=== PATIENT | female | born 1995 | race Caucasian/White ===

== ENCOUNTER → 2018-10-28 | Outpatient (CLI) | payer BC, SELFPAY ==
[2018-10-28 09:58] VITALS: BMI 34.4
[2018-10-28 11:39] LABS: Absolute Lymphocyte Count 1.76 X10^3/ul (0.83-4.51); Absolute Neutrophil Count 7.6 X10^3/uL (2.0-7.7); Basophil# 0.02 X10^3/uL; Basophil% 0.2 % (0-1); Eosinophil# 0.05 X10^3/uL; Eosinophils% 0.5 % (0-5); Hematocrit 29.5 % (37-47); Hemoglobin 9.2 g/dl (12.0-15.0); Lymphocyte # 1.76 X10^3/ul (4.0); Lymphocyte % 16.8 % (19-41); Mean Corp Hgb Conc 31.2 g/gl (32-36); Mean Corpuscular Hgb 22.4 pg (27.0-32.0); Mean Platelet Vol. 8.8 fl (6.2-12.0); Monocyte% 9.5 % (0-10); Neutrophil # 7.61 X10^3/uL (2.7-7.7); Neutrophil % 72.5 % (47-70); Platelet Count 323 K/mm3 (150-450); RBC Distribution Width CV 16.1 % (11.6-14.6); RBC Distribution Width SD 42.9 fl (35.1-43.9); White Blood Count 10.5 K/mm3 (4.4-11.0)
[2018-10-28 11:43] LABS: POSITIVE COUNT NO; POSITIVE DIFFERENTIAL NO; POSITIVE MORPHOLOGY NO
[2018-10-28 11:53] LABS: Glucose Challenge Gest 1H 50g 106 mg/dL (70-140)
== END | disposition home or self-care (01) ==
LOC: LAB 10:20
PROVIDERS: Family Provider Family Medicine; PCP Family Medicine; Referring Provider Nurse Practitioner Women's Health; Visit Provider Nurse Practitioner Women's Health
DX: Z34.90 Encounter for supervision of normal pregnancy, unspecified, unspecified trimester (principal)
CPT/HCPCS: 36415; 82950; 85025; 86850; 86900

== ENCOUNTER → 2018-11-13 | Outpatient (CLI) | payer BC, SELFPAY ==
[2018-11-13 11:42] VITALS: BMI 34.4
[2018-11-13 12:36] LABS: Absolute Neutrophil Count 7.2 X10^3/uL (2.0-7.7); Basophil# 0.02 X10^3/uL; Basophil% 0.2 % (0-1); Eosinophil# 0.04 X10^3/uL; Eosinophils% 0.4 % (0-5); Hematocrit 30.7 % (37-47); Hemoglobin 9.4 g/dl (12.0-15.0); Lymphocyte % 18.6 % (19-41); Mean Corp Hgb Conc 30.6 g/gl (32-36); Mean Corpuscular Hgb 22.1 pg (27.0-32.0); Mean Corpuscular Volume 72.2 fL (81-99); Mean Platelet Vol. 8.7 fl (6.2-12.0); Monocyte# 1.09 X10^3/uL; Monocyte% 10.7 % (0-10); Neutrophil # 7.15 X10^3/uL (2.7-7.7); Neutrophil % 69.8 % (47-70); Platelet Count 350 K/mm3 (150-450); RBC Distribution Width CV 17.2 % (11.6-14.6); RBC Distribution Width SD 44.4 fl (35.1-43.9); Red Blood Count 4.25 M/mm3 (4.2-5.4); White Blood Count 10.2 K/mm3 (4.4-11.0)
[2018-11-13 12:37] LABS: Differential Indicated SCAN CRITERIA MET; POSITIVE COUNT NO; POSITIVE DIFFERENTIAL NO; POSITIVE MORPHOLOGY YES
[2018-11-13 13:34] LABS: HIV - WCH Non-Reactive (Nonreactive); Rubella IgG 136.2 IU/mL
[2018-11-14 15:02] LABS: HEPATITIS B SURFACE AG Negative (Negative)
[2018-11-20 02:05] LABS: Rapid Plasmin Reagin (RPR) NONREACTIVE (NONREACTIVE)
== END | disposition home or self-care (01) ==
LOC: PAVLAB 11:55
PROVIDERS: Family Provider Family Medicine; PCP Family Medicine; Visit Provider Obstetrics & Gynecology
DX: Z34.92 Encounter for supervision of normal pregnancy, unspecified, second trimester (principal)
CPT/HCPCS: 36415; 85025; 86592; 86703; 86762; 86850; 86900; 87340

== ENCOUNTER → 2018-11-27 | Outpatient (CLI) | payer BC, SELFPAY ==
[2018-11-27 11:13] VITALS: BMI 34.4
== END | disposition home or self-care (01) ==
LOC: LABSPEC 13:33
PROVIDERS: Family Provider Family Medicine; PCP Family Medicine; Referring Provider Obstetrics & Gynecology; Visit Provider Obstetrics & Gynecology
DX: Z34.90 Encounter for supervision of normal pregnancy, unspecified, unspecified trimester (principal)

== ENCOUNTER 2018-12-25 14:40 | Outpatient (CLI) | payer BC, SELFPAY ==
[2018-12-25 11:32] VITALS: BMI 34.4
--- NOTE | 2018-12-25 15:24 | US_ITS ---
STUDY: SECOND AND THIRD TRIMESTER OBSTETRICAL ULTRASOUND - LIMITED REASON FOR EXAM: Female, 23 years old. Growth LMP: 04/18/2018 PRIOR ULTRASOUND: None. TECHNIQUE: Transabdominal TECHNICAL QUALITY: Adequate. FINDINGS: There is a single intrauterine fetus. The fetus is in a cephalic presentation. There is demonstrated cardiac activity with a heart rate of 138 bpm. There is a normal amniotic fluid volume. The largest amniotic fluid pocket measures 5.64 cm. The amniotic fluid index (EDSON) is 15.18 cm. The placenta is anterior in location and is not low lying. There are Grade 1 placental changes. The cervix measures 3.7 cm in length. BIOMETRY: BPD: 8.48 cm: 34 weeks, 2 days HC: 32.02: 36 weeks, 1 days AC: 30.62: 34 weeks, 5 days FL: 6.77: 34 weeks, 6 days Age by LMP: 35 weeks, 6 days. BRITTNEY by LMP: 01/23/2019 age by current US: 35 weeks, 0 days. BRITTNEY by current US: 01/29/2019. Estimated weight: 2506 grams, +/- 366 grams, 22 percentile. US/OB Limited With Biometrics IMPRESSION: Intrauterine gestation with sonographic age of 35 weeks 0 days. Cervix is closed. Positive cardiac activity. Normal amniotic fluid volume. Normal placenta. Electronically Signed: Petros Moseley MD at 17:08 EDT Tel , Service support ,
[2018-12-25 16:16] VITALS: BMI 34.1
[2018-12-25] MEDS: Betamethasone/Betamethasone 30 MG/5 ML Vial 12 MG IM (16:45)
--- NOTE | 2018-12-28 02:56 | HP.PCM_ITS ---
- Problem List (1) Severe preeclampsia Status: Acute (2) heart deceleration Status: Acute (3) Anemia affecting , antepartum Status: Acute Comment: iron and PNV, check at 35 weeks (4) Supervision of normal Status: Acute Qualifiers: Comment: BRITTNEY 01/23/19 boy Donald rogerio (5) Status: Acute Qualifiers: History Date of Admission: 12/28/18 Final BRITTNEY: 01/23/19 Gestational age: 36 Weeks and 2 Days History of this : This is a 23 year-old, , at 36w2d weeks gestational age presents for borderline elevated blood pressures headache and blurry vision and decreased movement. Patient was evaluated 3 days ago and diagnosed with mild preeclampsia, had normal labs except for an elevated protein in the urine and had a normal growth ultrasound. Tonight patient's CBC was within normal limits but liver enzymes are no elevated and blood pressures are normal to borderline elevated patient has headache, blurry vision, and there is a category 2 heart rate tracing with moderate variability but intermittent recurrent late decelerations. Medical History: Medical History (Last Reviewed 12/25/18 @ 11:09 by Faviola Diana) Anemia D64.9 Depression with anxiety F41.8 Surgical History: Surgical History (Last Reviewed 12/25/18 @ 11:09 by Faviola Diana) H/O knee surgery Z98.890 2007 H/O removal of cyst Z98.890 right leg- 2014 Allergies No Known Allergies Allergy (Verified 12/28/18 00:36) Home Medications: Home Medications nystatin 100,000 unit/gram topical cream 1 applic TOPICAL BID 10/02/18 vitamin,calcium,dxtoiglf-cemp-fruhz acid tablet 1 tab PO DAILY 10/02/18 triamcinolone acetonide 0.1 % topical cream 1 applic TOPICAL DAILY 10/02/18 Ferrous Sulfate [Iron] 325 mg PO DAILY 12/25/18 miscellaneous medical supply misc See Rx Instructions .ROUTE .MEDSUPPLY #1 ea 12/25/18 Smoking Status: Never smoker Number of Fetus(es): 1 Heart Tracin moderate variability positive accelerations intermittent late decelerations, category II tracing [place]: regular History Past Pregnancies: Past Pregnancies Delivery Date Name GA/Weeks Outcome Route Weight Infant Gender Labor Length Anesthesia Delivery Location Provider FOB Labs: Social History Smoking Status Never smoker Expected Infant Delivery Method: Primary Section, LEVI Section Review of Systems Constitutional: Denies: Fever, Malaise Eyes: Reports: Blurred vision, Vision Change HEENT: Reports: Head Aches, Visual Changes Cardiovascular: Denies: Chest Pain, Palpitations Respiratory: Denies: Cough, Shortness of Breath, Wheezing Gastrointestinal: Denies: Abdominal Pain, Diarrhea, Nausea, Vomiting Genitourinary: Denies: Dysuria, Hematuria Musculoskeletal: Denies: Joint Pain, Muscle pain Skin: Denies: Lesions, Rash Neurological: Reports: Headaches. Denies: Blurred vision, Focal weakness Psychiatric: Denies: Anxiety, Depression Endocrine: Denies: Heat/ Cold Intolerance Hematologic/ Lymphatic: Denies: Easy Bruising, Easy Bleeding Physical Exam General: Alert, Cooperative, No apparent distress HEENT: Atraumatic, Normocephalic. Negative for: Thyromegaly, Lymphadenopathy Cardiovascular: Regular rate Lungs: Normal air movement Abdomen: Soft, Non Tender, Gravid Neurological: Deep Tendon Reflexes 2+/4 and Symmetrical, Neuro grossly intact. Negative for: Clonus [employer] CONSULTANT: Normal external genitalia. Negative for: Vulvar lesions Estimated gestational size: Appropriate for gestational size Presentation: Cephalic Cervix Dilation (cm): 0 Assessment/Plan All Active Problems (Last Reviewed 12/25/18 @ 11:09 by Faviola Diana) Severe preeclampsia (Acute) heart deceleration (Acute) Mild pre-eclampsia (Acute) Anemia affecting , antepartum (Acute) Supervision of normal (Acute) (Acute) This is a 23 year-old, , at 36w2d weeks gestational age presents with preeclampsia with severe symptoms and category II tracing 1. severe preeclampsia- will start magnesium sulfate, maintain bps under 160/110. recommend immediate delivery 2. prematurity- s/p celestone 3 days ago 3. category II tracing- remote from delivery, recommend proceed with
--- NOTE | 2018-12-28 03:13 | PCM.OPRPT ---
Problem List (1) Severe preeclampsia Status: Acute (2) heart deceleration Status: Acute (3) Anemia affecting , antepartum Status: Acute Comment: iron and PNV, check at 35 weeks (4) Supervision of normal Status: Acute Qualifiers: Comment: BRITTNEY 01/23/19 boy Donald rogerio (5) Status: Acute Qualifiers:
--- NOTE | 2018-12-28 04:16 | OB.TRI.PN ---
Progress Notes Date of Service: 12/25/18 Progress Note: Elevated protein in the office. Labs done and within normal limits. Celestone given. heart tones 120 moderate variability reactive no decelerations category 1 tracing [place]: No regular contractions Assessment and plan 23-year-old G2, P0 at 35 weeks 6 days with mild preeclampsia. First dose of Celestone given labs within normal limits growth ultrasound reassuring will DC home to manage as outpatient for preeclampsia. Plan home blood pressure monitoring and symptoms reviewed.
[2018-12-28 07:05] LABS: ALB/GLOB Ratio 0.7 RATIO (0.9-2.4); AST(SGOT) 65 U/L (15-37); Alanine Aminotransfer ALT/SGPT 57 U/L (13-56); Albumin, Serum 2.5 g/dL (3.2-5.0); Alkaline Phosphatase 109 U/L (45-117); Anion Gap 10 (5-15); BUN 15 mg/dL (7-18); BUN/Creat Ratio 17.7 RATIO (10-20); Chloride 108 mmol/L (98-107); Creatinine, Serum 0.85 mg/dL (0.55-1.02); EST Glomerular Filtration Rate 87 mL/min (>60); Est Glom Filt Rate - Afr Amer 106 mL/min (>60); Estimated Creatinine Clearance 110.36 ml/min; Globulin 3.6 g/dL (2.2-4.2); Glucose 101 mg/dL (74-106); Potassium 3.3 mmol/L (3.5-5.1); Protein, Total 6.1 g/dL (6.4-8.2); Sodium Level 137 mmol/L (136-145)
[2018-12-28 07:06] LABS: Hematocrit 32.2 % (37-47); Hemoglobin 9.7 g/dl (12.0-15.0); Mean Corp Hgb Conc 30.1 g/gl (32-36); Mean Corpuscular Hgb 21.6 pg (27.0-32.0); Mean Corpuscular Volume 71.6 fL (81-99); Mean Platelet Vol. 9.4 fl (6.2-12.0); Platelet Count 377 K/mm3 (150-450); RBC Distribution Width SD 46.9 fl (35.1-43.9); White Blood Count 14.2 K/mm3 (4.4-11.0)
[2018-12-28 07:20] LABS: Scan Indicated on CBC? Y/N YES- FLAGS NOTED
[2018-12-28 07:30] LABS: Differential Comment SCANNED
== END 2018-12-25 17:00 | disposition home or self-care (01) ==
LOC: WPOUT 14:46 → OBT 14:47
PROVIDERS: Family Provider Family Medicine; PCP Family Medicine; Referring Provider Obstetrics & Gynecology; Visit Provider Obstetrics & Gynecology
DX: O14.03 Mild to moderate pre-eclampsia, third trimester (principal); Z3A.35 35 weeks gestation of pregnancy
CPT/HCPCS: 59025; 59050; 76816; 80053; 85027; 96372; 99218; G0378; J0702

== ENCOUNTER → 2018-12-25 | Outpatient (CLI) | payer BC, SELFPAY ==
[2018-12-25 11:32] VITALS: BMI 34.4
[2018-12-25 11:53] LABS: Absolute Lymphocyte Count 2.19 X10^3/ul (0.83-4.51); Absolute Neutrophil Count 6.2 X10^3/uL (2.0-7.7); Basophil# 0.04 X10^3/uL; Basophil% 0.4 % (0-1); Eosinophil# 0.04 X10^3/uL; Eosinophils% 0.4 % (0-5); Hematocrit 34.2 % (37-47); Hemoglobin 10.6 g/dl (12.0-15.0); Lymphocyte # 2.19 X10^3/ul (4.0); Lymphocyte % 22.6 % (19-41); Mean Corpuscular Hgb 21.6 pg (27.0-32.0); Mean Corpuscular Volume 69.7 fL (81-99); Mean Platelet Vol. 9.7 fl (6.2-12.0); Monocyte# 1.14 X10^3/uL; Monocyte% 11.8 % (0-10); Neutrophil # 6.24 X10^3/uL (2.7-7.7); Neutrophil % 64.5 % (47-70); Platelet Count 389 K/mm3 (150-450); RBC Distribution Width CV 18.5 % (11.6-14.6); RBC Distribution Width SD 46.1 fl (35.1-43.9); Red Blood Count 4.91 M/mm3 (4.2-5.4); White Blood Count 9.7 K/mm3 (4.4-11.0)
[2018-12-25 11:54] LABS: POSITIVE COUNT NO; POSITIVE DIFFERENTIAL NO; POSITIVE MORPHOLOGY NO
[2018-12-25 12:12] LABS: ALB/GLOB Ratio 0.6 RATIO (0.9-2.4); AST(SGOT) 18 U/L (15-37); Alanine Aminotransfer ALT/SGPT 22 U/L (13-56); Albumin, Serum 2.5 g/dL (3.2-5.0); Alkaline Phosphatase 125 U/L (45-117); Anion Gap 5 (5-15); BUN 8 mg/dL (7-18); BUN/Creat Ratio 9.5 RATIO (10-20); Calcium,Total 8.5 mg/dL (8.5-10.1); Chloride 109 mmol/L (98-107); Creatinine, Serum 0.84 mg/dL (0.55-1.02); EST Glomerular Filtration Rate 88 mL/min (>60); Est Glom Filt Rate - Afr Amer 107 mL/min (>60); Globulin 3.9 g/dL (2.2-4.2); Glucose 77 mg/dL (74-106); Potassium 4.2 mmol/L (3.5-5.1); Protein, Total 6.4 g/dL (6.4-8.2); Sodium Level 136 mmol/L (136-145)
[2018-12-25 13:53] LABS: Protein, Urine (Random) 106.6 mg/dL (<11.9); Protein:Creat Ratio 404 mg/g CRE (0-200)
== END | disposition home or self-care (01) ==
PROVIDERS: Family Provider Family Medicine; PCP Family Medicine; Referring Provider Nurse Practitioner Women's Health; Visit Provider Nurse Practitioner Women's Health
DX: O99.019 Anemia complicating pregnancy, unspecified trimester (principal); D64.9 Anemia, unspecified; O12.10 Gestational proteinuria, unspecified trimester; Z3A.00 Weeks of gestation of pregnancy not specified
CPT/HCPCS: 36415; 80053; 82570; 84156; 85025

== ENCOUNTER 2018-12-26 15:30 | Outpatient (CLI) | payer BC, SELFPAY ==
[2018-12-25 16:16] VITALS: BMI 34.1
[2018-12-26 15:48] VITALS: BMI 33.5
[2018-12-26] MEDS: Betamethasone/Betamethasone 30 MG/5 ML Vial 12 MG IM (16:42)
--- NOTE | 2018-12-28 04:18 | OB.TRI.PN ---
Progress Notes Date of Service: 12/26/18 Progress Note: Celestone dose #2 given
== END 2018-12-26 16:47 | disposition home or self-care (01) ==
LOC: WPOUT 15:35 → WP 15:36
PROVIDERS: Family Provider Family Medicine; PCP Family Medicine; Visit Provider Obstetrics & Gynecology
DX: Z34.90 Encounter for supervision of normal pregnancy, unspecified, unspecified trimester (principal)
CPT/HCPCS: 96372; 99218; G0378; J0702

== ENCOUNTER 2018-12-28 02:53 | Inpatient (IN) | payer BC, SELFPAY ==
[2018-12-28] VITALS (28 sets, daily range): BP systolic 127–157; BP diastolic 55–91; PULSE 58–82; RESP 16–18; TEMP 35.8–36.9; O2SAT 98–100; BMI 34.1
--- NOTE | 2018-12-28 | PLAC_PTH ---
PATIENT: BERNARDO BONILLA LOC: [facility] U#:[id number] AGE/SX: 23 ROOM: WP012 RE12/28/[address]: Dr. Patricia Rooney MD : 1995 BED: 1 DIS: 12/31/2018 SPEC #: [id number] RECD: 12/28/18 10:48 STATUS: MEGAN REChrissy #: [id number] ANDRES: 12/28/18 00:[address]: Patricia Rooney DEPT: SURGICAL PATHOLOGY RECD BY: Juluis Chin ENTERED: 12/28/18 10:49 SP TYPE: PLACENTA OTHR DR: Dr. Marino Hernandez, Tissues: Placenta, NOS Procedures: Surgery Specimen Level V HEADER OPERATION: Primary section PRE-OP DIAGNOSIS: Pre-eclampsia TISSUE SUBMITTED: Placenta MICROSCOPIC DIAGNOSIS Placenta: Placental disc - third trimester placenta (427 gm). - Multiple areas of infarction (largest measuring 3.5 cm in greatest dimension). - Focal areas of intraparenchymal hemorrhage. - Focal area of fibrinous deposition, maternal surface (grossly plaque-like lesion). - Increased syncytial knots. Membranes - focal circummarginate insertion. Umbilical cord - three blood vessels and no pathologic diagnosis. SJ:bhavna 12/30/18 MICROSCOPIC DESCRIPTION Slides are reviewed. GROSS DESCRIPTION SPECIMEN: PLACENTA / CLINICAL INFORMATION: A. Weight: 2.14 kg B. Gestational Age: 36 weeks C. Sex: Male PLACENTAL WEIGHT (POST FIXATION): 427 gm PLACENTAL DIMENSIONS: 15 x 14 x 3.5 cm PLACENTAL SHAPE: Usual ovoid PLACENTAL WEIGHT FOR GESTATIONAL AGE: Within 10-99th percentile MEMBRANES - Present A. Insertion: The membranes are inserted in one-fourth of the placenta 1.5 cm away from the margin. B. Site of rupture from edge: At edge of placental disc C. Color of membrane: Pino-orlando D. Abnormalities: None UMBILICAL CORD - Present A. Color: Pino-orlando B. Insertion: Paracentral C. Length: 28 cm D. Diameter: 1.2 cm E. Number of vessels: Three F. Abnormalities: None PLACENTAL DISC - Present A. Color of surface: Pino[place]or[place] B. surface abnormalities: None C. Maternal cotyledons: Intact with minimal tears D. Attached retro placental clot: No clot E. Cut surface: Dark red and spongy F. Lesions: Sections reveal nine pino, indurated areas measuring 1 to 3.5 cm in greatest dimension. The largest lesion measures 3.5 x 3.5 x 1 cm. A plaque-like lesion is also noted on the maternal surface measuring 4 cm in greatest dimension. G. Separate clot: Also present in the container are multiple blood clots measuring in aggregate 6 x 5 x 2 cm weighing 10 gm. SECTIONS SUBMITTED: 1. Membrane roll 2. Cord, maternal end, insertion of membrane away from the placenta 3. Cord, end, insertion of membrane away from the placenta 4. Placental disc, maternal and surfaces, largest lesion, 5. Placental disc maternal and surfaces, one lesion, 6. Placental disc maternal and surfaces, one lesion. 7. Placental disc, Two lesions. 8. Placental disc, Two lesions. 9. Placental disc, Two lesions. 10. Placental disc, plaque-like area on the maternal surface, SJ:rg 12/29/18 TC:5 CPT: 83303
[2018-12-28 01:28] LABS: Absolute Neutrophil Count 11.2 X10^3/uL (2.0-7.7); Basophil# 0.01 X10^3/uL; Basophil% 0.1 % (0-1); Hemoglobin 9.9 g/dl (12.0-15.0); Lymphocyte % 17.7 % (19-41); Mean Corp Hgb Conc 30.9 g/gl (32-36); Mean Corpuscular Hgb 22.1 pg (27.0-32.0); Mean Corpuscular Volume 71.6 fL (81-99); Mean Platelet Vol. 9.3 fl (6.2-12.0); Monocyte# 1.77 X10^3/uL; Monocyte% 11.2 % (0-10); Neutrophil # 11.18 X10^3/uL (2.7-7.7); Neutrophil % 70.6 % (47-70); Platelet Count 375 K/mm3 (150-450); RBC Distribution Width SD 46.5 fl (35.1-43.9); Red Blood Count 4.47 M/mm3 (4.2-5.4); White Blood Count 15.8 K/mm3 (4.4-11.0)
[2018-12-28 01:30] LABS: Differential Indicated SCAN CRITERIA MET; POSITIVE COUNT NO; POSITIVE DIFFERENTIAL YES; POSITIVE MORPHOLOGY YES
[2018-12-28 01:33] LABS: ALB/GLOB Ratio 0.7 RATIO (0.9-2.4); AST(SGOT) 72 U/L (15-37); Alanine Aminotransfer ALT/SGPT 64 U/L (13-56); Albumin, Serum 2.7 g/dL (3.2-5.0); Alkaline Phosphatase 117 U/L (45-117); Anion Gap 7 (5-15); BUN 17 mg/dL (7-18); BUN/Creat Ratio 18.6 RATIO (10-20); Calcium,Total 8.3 mg/dL (8.5-10.1); Chloride 108 mmol/L (98-107); Creatinine, Serum 0.92 mg/dL (0.55-1.02); EST Glomerular Filtration Rate 80 mL/min (>60); Est Glom Filt Rate - Afr Amer 97 mL/min (>60); Estimated Creatinine Clearance 101.96 ml/min; Globulin 3.8 g/dL (2.2-4.2); Glucose 90 mg/dL (74-106); Potassium 3.7 mmol/L (3.5-5.1); Protein, Total 6.5 g/dL (6.4-8.2); Sodium Level 137 mmol/L (136-145)
[2018-12-28 02:03] LABS: Differential Comment SCANNED; Hypochromasia 3+; Macrocytosis RARE; Microcytosis 3+; Ovalocyte RARE; Platelet Estimate ADEQUATE (ADEQ); Target Cells RARE
[2018-12-28] MEDS: Lactated Ringers 1,000 ML 999 ML IV (02:58)
[2018-12-28] MEDS: Sodium Citrate/Citric Acid 30 ML UDC PO (03:05)
[2018-12-28] MEDS: Cefazolin 2 GM in 0.9% Normal Saline 100 ML IV (03:40)
[2018-12-28] MEDS: Oxytocin 30 units/NS 500 ml 30 UNITS/500 ML IV.SOLN 167 UNITS IV (03:45)
[2018-12-28] MEDS: Lactated Ringers 1,000 ML 150 ML IV (04:00)
--- NOTE | 2018-12-28 04:14 | HP.PCM_ITS ---
- Problem List (1) Anemia affecting , antepartum Status: Acute Comment: iron and PNV, check at 35 weeks (2) heart deceleration Status: Acute (3) Status: Acute Qualifiers: (4) Severe preeclampsia Status: Acute (5) Supervision of normal Status: Acute Qualifiers: Comment: BRITTNEY 01/23/19 silvestre beatty History and Physical Date of Admission: 12/28/[address] [facility] History and Physical - OBGYN Patient Name: BERNARDO BONILLA Date of : [birth year] Patient Status: Clinical Attending Provider: Patricia Rooney Date: 12/28/18 02:56 Initialization Date: 12/28/18 02:56 - Problem List (1) Severe preeclampsia Status: Acute (2) heart deceleration Status: Acute (3) Anemia affecting , antepartum Status: Acute Comment: iron and PNV, check at 35 weeks (4) Supervision of normal Status: Acute Qualifiers: Comment: BRITTNEY 01/23/19 silvestre beatty (5) Status: Acute Qualifiers: History Date of Admission: 12/28/18 Final BRITTNEY: 01/23/19 Gestational age: 36 Weeks and 2 Days History of this : This is a 23 year-old, , at 36w2d weeks gestational age presents for borderline elevated blood pressures headache and blurry vision and decreased movement. Patient was evaluated 3 days ago and diagnosed with mild preeclampsia, had normal labs except for an elevated protein in the urine and had a normal growth ultrasound. Tonight patient's CBC was within normal limits but liver enzymes are no elevated and blood pressures are normal to borderline elevated patient has headache, blurry vision, and there is a category 2 heart rate tracing with moderate variability but intermittent recurrent late decelerations. Medical History: Medical History (Last Reviewed 12/25/18 @ 11:09 by Faviola Diana) Anemia D64.9 Depression with anxiety F41.8 Surgical History: Surgical History (Last Reviewed 12/25/18 @ 11:09 by Faviola Diana) H/O knee surgery Z98.890 2007 H/O removal of cyst Z98.890 right leg- 2015 Allergies No Known Allergies Allergy (Verified 12/28/18 00:36) Home Medications: Home Medications nystatin 100,000 unit/gram topical cream 1 applic TOPICAL BID 10/02/18 vitamin,calcium,xsaaydvj-ceta-jlfqp acid tablet 1 tab PO DAILY 10/02/18 triamcinolone acetonide 0.1 % topical cream 1 applic TOPICAL DAILY 10/02/18 Ferrous Sulfate [Iron] 325 mg PO DAILY 12/25/18 miscellaneous medical supply misc See Rx Instructions .ROUTE .MEDSUPPLY #1 ea 12/25/18 Smoking Status: Never smoker Number of Fetus(es): 1 Heart Tracin moderate variability positive accelerations intermittent late decelerations, category II tracing [place]: regular History Past Pregnancies: Past Pregnancies Delivery Date Name GA/Weeks Outcome Route Weight Infant Gender Labor Length Anesthesia Delivery Location Provider FOB Labs: Social History Smoking Status Never smoker Expected Infant Delivery Method: Primary Section, LEVI Section Review of Systems Constitutional: Denies: Fever, Malaise Eyes: Reports: Blurred vision, Vision Change HEENT: Reports: Head Aches, Visual Changes Cardiovascular: Denies: Chest Pain, Palpitations Respiratory: Denies: Cough, Shortness of Breath, Wheezing Gastrointestinal: Denies: Abdominal Pain, Diarrhea, Nausea, Vomiting Genitourinary: Denies: Dysuria, Hematuria Musculoskeletal: Denies: Joint Pain, Muscle pain Skin: Denies: Lesions, Rash Neurological: Reports: Headaches. Denies: Blurred vision, Focal weakness Psychiatric: Denies: Anxiety, Depression Endocrine: Denies: Heat/ Cold Intolerance Hematologic/ Lymphatic: Denies: Easy Bruising, Easy Bleeding Physical Exam General: Alert, Cooperative, No apparent distress HEENT: Atraumatic, Normocephalic. Negative for: Thyromegaly, Lymphadenopathy Cardiovascular: Regular rate Lungs: Normal air movement Abdomen: Soft, Non Tender, Gravid Neurological: Deep Tendon Reflexes 2+/4 and Symmetrical, Neuro grossly intact. 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 Negative for: Vulvar lesions Estimated gestational size: Appropriate for gestational size Presentation: Cephalic Cervix Dilation (cm): 0 Assessment/Plan All Active Problems (Last Reviewed 12/25/18 @ 11:09 by Faviola Diana) Severe preeclampsia (Acute) heart deceleration (Acute) Mild pre-eclampsia (Acute) Anemia affecting , antepartum (Acute) Supervision of normal (Acute) (Acute) This is a 23 year-old, , at 36w2d weeks gestational age presents with preeclampsia with severe symptoms and category II tracing 1. severe preeclampsia- will start magnesium sulfate, maintain bps under 160/110. recommend immediate delivery 2. prematurity- s/p celestone 3 days ago 3. category II tracing- remote from delivery, recommend proceed with
[2018-12-28] MEDS: Magnesium Sulfate 20 GM/500 ML BAG IV ×2 (04:15→15:44)
--- NOTE | 2018-12-28 05:20 | OP.PCM_ITS ---
Problem List (1) Anemia affecting , antepartum Status: Acute Comment: iron and PNV, check at 35 weeks (2) heart deceleration Status: Acute (3) Status: Acute Qualifiers: (4) Severe preeclampsia Status: Acute (5) Supervision of normal Status: Acute Qualifiers: Comment: BRITTNEY 01/23/19 silvestre Bennett luke Delivery Classification: LEIV Final BRITTNEY: 01/23/19 Gestational age: 36 Weeks and 2 Days Indications: preeclampsia with severe features Indications for : Distress Description of Procedure: 23-year-old G2, P0 at 36 weeks 2 days presented for headache and blurry vision and was diagnosed with preeclampsia with severe features. While being monitored patient developed recurrent heart rate decelerations and was remote from delivery therefore the decision was made to proceed with a primary low transverse . Spinal anesthesia was placed without difficulty. Grant catheter was placed. The patient was placed in the dorsal supine position with leftward tilt. Patient was prepped and draped in the normal sterile fashion. Pfannenstiel skin incision was made with the scalpel and carried through to the underlying layer of fascia with the scalpel. Fascia was nicked in the midline and the incision extended laterally. The rectus bellies were dissected off superiorly and inferiorly with out complication both sharply and bluntly. The peritoneum was entered digitally. The incision was stretched and a low transverse uterine incision was made with the scalpel. The infant's head was delivered atraumatically followed by the anterior and posterior shoulders without complication the rest of the infant delivered. The cord was clamped and cut and the infant was handed off to awaiting nurse. The placenta was delivered spontaneously immediately following and was noted to be intact and have a three- vessel cord. The uterus was exteriorized cleared of all clots and debris, and the incision was closed in a double layer closure using #1 Monocryl. The uterus was returned to the maternal abdomen and gutters were cleared of all clots and debris. The ovaries and fallopian tubes were noted to be within normal limits. The peritoneum was closed with 3-0 Monocryl in a running fashion. Fascia was closed with 0 PDS in a running fashion. Subcutaneous tissue was copiously irrigated and the skin was closed with 3-0 Monocryl in a subcuticular fashion. Mepilex dressing were applied without complication. Patient was taken to recovery in stable condition. Amniotic Membrane Rupture Type: Artificial Amniotic Fluid Description: Clear Placenta Disposition: Sent to Pathology Drain: Grant to straight drain Fluids Replaced: crystalloid Cord Entanglement: None Cord Vessel Description: 3 Vessels Esitmated Blood Loss (ml): 700 Gender: Male Delayed cord clamping: Yes Pre-op Antibiotic Given: Ancef 2 grams IV x1
--- NOTE | 2018-12-28 09:12 | NURSING ---
magnesium started in OR see anethesia sheet for VS
[2018-12-28] MEDS: Ketorolac 30 MG/ML Syringe IV ×3 (11:39→21:56)
[2018-12-28] MEDS: Lactated Ringers 1,000 ML 100 ML IV (15:45)
[2018-12-28] MEDS: Enoxaparin 40 MG/0.4 ML Syringe SC (16:42)
[2018-12-28] MEDS: 0.9% Saline Lock 10 ML Syringe IV (21:56)
[2018-12-29] VITALS (9 sets, daily range): BP systolic 128–153; BP diastolic 77–90; PULSE 59–76; RESP 15–18; TEMP 36–36.9; O2SAT 98–100
[2018-12-29] MEDS: 0.9% Saline Lock 10 ML Syringe IV ×5 (03:09→22:10)
[2018-12-29] MEDS: Ketorolac 30 MG/ML Syringe IV ×4 (04:46→22:10)
--- NOTE | 2018-12-29 07:09 | PCM.PN.OB ---
Subjective: doing well no complaints pain controlled no CP SOB N V ambulating well tolerating po lochia moderate, going well - Physical Exam General: Alert, Oriented x3 Vital Signs Temp Pulse Resp BP Pulse Ox 97.3 F L 63 18 139/88 H 99 12/29/18 04:30 12/29/18 04:30 12/29/18 04:30 12/29/18 04:30 12/29/18 04:30 Oxygen Delivery Method Room Air Weight: 238 lb Body Mass Index (BMI) 34.1 Intake and Output for Last 24 Hours 12/27/18 12/28/18 12/29/18 23:59 23:59 23:59 Intake Total 3360 / 3360 205 / 205 Output Total 1755 / 1755 357 / 357 Balance 1605 / 1605 -152 / -152 Medical Necessity - Tobacco Use Smoking Status: Never smoker Assessment/Plan All Active Problems (Last Reviewed 12/25/18 @ 11:09 by Faviola Diana) Severe preeclampsia (Acute) heart deceleration (Acute) Mild pre-eclampsia (Acute) Anemia affecting , antepartum (Acute) Supervision of normal (Acute) (Acute) s/p LTCS PPD # 1 severe preeclampsia with cat II tracing 1. routine post care 2. breast feeding- support given 3. rh positive 4. rubella immune monitor blood pressures- s/p magnesium for 24 hours
[2018-12-29] MEDS: Enoxaparin 40 MG/0.4 ML Syringe SC (16:05)
--- NOTE | 2018-12-29 20:45 | NURSING ---
pt BP with 2000 vitals was 153/90. visitors were at bedside and this RN obtained BP on bilateral arms to compare readings and they were similar. Dr. Rooney updated on BP and states to repeat BP in 1-2 hours with next round and inform her if >150s/100s. She states she will start pt on labetolol if deemed necessary. will continue to monitor. pt asymptomatic at this time.
[2018-12-30 02:52] VITALS: BP 133/88; PULSE 70; RESP 14; TEMP 37.6
[2018-12-30] MEDS: Ketorolac 30 MG/ML Syringe IV (04:16)
[2018-12-30] MEDS: 0.9% Saline Lock 10 ML Syringe IV (04:16)
[2018-12-30 07:40] VITALS: BP 139/83; PULSE 70; RESP 16; TEMP 36.7; O2SAT 99
[2018-12-30 10:03] LABS: Pathologist Review Reviewed
[2018-12-30 13:15] VITALS: BP 132/78; PULSE 65; RESP 16; TEMP 36.1; O2SAT 99
[2018-12-30 13:58] LABS: Pathology Specimen OB SEE PATHOLOGY REPORT
--- NOTE | 2018-12-30 15:30 | CASEMGMT ---
Social Work Brief Assessment - Labor and Delivery Unit Date of Referral/Notification: 12/30/2018 Time of Referral: 0830 Referred By: social work identification Reason for Referral: assess for resources, first time mom of premature baby and maternal history of depression and anxiety Date of Intervention: 12/30/2018 Time of Intervention: 1530 Informant: Medical record and mother of baby (MOB) Alla Alvarado; father of baby (FOB) Iggy Alvarado also present History: MOB is G2, P0 to 1 after delivering baby silvestre Alvarado on 12-28-2018 at 36.2 weeks gestation. Per medical record baby is small for gestational age at 4 pounds 11 ounces. Apgars at 1 and 5 minutes of life were 8 and 9 respectively. MOB transferred care from [place] to [facility] at 23 weeks gestation, and from record visits appearing regular. Baby delivered via LEVI Caesarian section. MOB with pre-eclampsia. MOB and FOB are . Both MOB and FOB are employed. MOB with history of depression and anxiety, no medication for 4 years. No reports of current depressive or anxiety symptoms, and no reports of any substance use history. No learning or comprehension issues reported. Assessment: No reported concerns from nursing staff regarding parent/child bonding or interactions. MOB holding baby when social secretary present, was gentle and attentive to baby. MOB's affect appropriate, held good eye contact. MOB reports to have supplies ready for baby at home and to have adequate support from family. MOB voices worry about just not wanting to miss anything with the baby. Educated MOB to nurse visit program through the [facility], as MOB and FOB report to live in [facility]. MOB agreeable to referral. Educated to [facility] and MOB also agreeable to referral to learn more about the program. MOB accepting for resources and referrals. Touched on depression, risk factors present, and importance of letting supports and health care providers know should symptoms arise. MOB voices understanding. Plan: MOB and baby to home when ready. nurse and [facility] referrals pending. No further needs requested or indicated. -GLORIA Diaz, [employer] CREWMEMBER
[2018-12-30] MEDS: Naproxen 250 MG Tablet PO (15:36)
[2018-12-30] MEDS: Enoxaparin 40 MG/0.4 ML Syringe SC (17:42)
[2018-12-30 20:20] VITALS: BP 124/68; PULSE 72; RESP 18; TEMP 36.3; O2SAT 98
[2018-12-31 02:30] VITALS: BP 116/78; PULSE 75; RESP 18; TEMP 36.6
--- NOTE | 2018-12-31 06:52 | PCM.PN.OB ---
Subjective: late entry- patient seen 12/30/18 at 800 doing well no complaints pain controlled no CP SOB N V ambulating well tolerating po lochia moderate, going well - Physical Exam General: Alert, Oriented x3 Vital Signs Temp Pulse Resp BP Pulse Ox 97.8 F 75 18 116/78 98 12/31/18 02:30 12/31/18 02:30 12/31/18 02:30 12/31/18 02:30 12/30/18 20:20 Oxygen Delivery Method Room Air Weight: 238 lb Body Mass Index (BMI) 34.1 Intake and Output for Last 24 Hours 12/29/18 12/30/18 12/31/18 23:59 23:59 23:59 Intake Total 205 / 205 Output Total 807 / 1057 250 / 250 Balance -602 / -852 -250 / -250 Laboratory Tests Past 24 Hrs 12/28/18 01:00 Diff Path Review Reviewed Medical Necessity - Tobacco Use Smoking Status: Never smoker Assessment/Plan All Active Problems (Last Reviewed 12/25/18 @ 11:09 by Faviola Diana) Severe preeclampsia (Acute) heart deceleration (Acute) Mild pre-eclampsia (Acute) Anemia affecting , antepartum (Acute) Supervision of normal (Acute) (Acute) s/p LTCS PPD # 2 severe preeclampsia with cat II tracing 1. routine post care 2. breast feeding- support given 3. rh positive 4. rubella immune monitor blood pressures- s/p magnesium for 24 hours
--- NOTE | 2018-12-31 06:52 | PCM.PN.OB ---
Subjective: doing well no complaints pain controlled no CP SOB N V ambulating well tolerating po lochia moderate, going well - Physical Exam General: Alert, Oriented x3 Vital Signs Temp Pulse Resp BP Pulse Ox 97.8 F 75 18 116/78 98 12/31/18 02:30 12/31/18 02:30 12/31/18 02:30 12/31/18 02:30 12/30/18 20:20 Oxygen Delivery Method Room Air Weight: 238 lb Body Mass Index (BMI) 34.1 Intake and Output for Last 24 Hours 12/29/18 12/30/18 12/31/18 23:59 23:59 23:59 Intake Total 205 / 205 Output Total 807 / 1057 250 / 250 Balance -602 / -852 -250 / -250 Laboratory Tests Past 24 Hrs 12/28/18 01:00 Diff Path Review Reviewed Medical Necessity - Tobacco Use Smoking Status: Never smoker Assessment/Plan All Active Problems (Last Reviewed 12/25/18 @ 11:09 by Faviola Diana) Severe preeclampsia (Acute) heart deceleration (Acute) Mild pre-eclampsia (Acute) Anemia affecting , antepartum (Acute) Supervision of normal (Acute) (Acute) s/p LTCS PPD # 3 severe preeclampsia with cat II tracing 1. routine post care 2. breast feeding- support given 3. rh positive 4. rubella immune monitor blood pressures- s/p magnesium for 24 hours
--- NOTE | 2018-12-31 06:55 | DCINST_ITS ---
Discharge Diet: No Restrictions Discharge Activity: May Not Drive - for 2 weeks, May not drive while taking narcotic pain medications., May Shower, May Take a Tub Bath - in 7 days May resume sexual activity in: 4-6 weeks Lifting Restrictions: 20 pounds Additional Activity Instructions:: Nothing in the vagina for 4-6 weeks. You may return to work/school in 6 weeks. Call your doctor if your incision/area has: Continuous Slow Oozing, Sudden Increased Bleeding, Increased Pain/ Swelling, Increased Redness, Foul Smelling Discharge Call your doctor if you observe: Fever of 101 or Higher, Using more than one pad per hour - for 2 hours Suture Line Care: Avoid Pulling/Pushing, Avoid Pinching/Bending Cleanse incision/area with: Keep Dressing Clean & Dry Additional Instructions: If you experience any of the following, contact your healthcare provider. * Bleeding that soaks a pad every hour for 2 hours * Fever 100.4 or higher * Unrelieved incision or abdominal pain * Swelling, redness, discharge or bleeding from your incision or episiotomy site * Your incision begins to separate * Problems urinating (including inability to urinate or burning while urinating). * Visual changes * Severe headache * Flu-like symptoms * Pain or redness in one of both of your breasts * Pain, warmth, tenderness or swelling in your legs, especially the calf area * Frequent nausea and vomiting * Symptoms of depression or anxiety If you experience any of the following, call 911 or go to the nearest Emergency Room. * Chest pain * Problems breathing * Seizure activity * Partial or complete paralysis of a body part, slurred speech, weakness or drooping of the face, or a sudden inability to walk or hold your balance Allergies/Adverse Reactions: Allergies No Known Allergies Allergy (Verified 12/28/18 00:36) Medications to take at Discharge nystatin 100,000 unit/gram topical cream 1 applic TOPICAL BID 10/02/18 vitamin,calcium,hejxkduu-myyo-mzlei acid tablet 1 tab PO DAILY 10/02/18 triamcinolone acetonide 0.1 % topical cream 1 applic TOPICAL DAILY 10/02/18 Ferrous Sulfate [Iron] 325 mg PO DAILY 12/25/18 miscellaneous medical supply misc See Rx Instructions .ROUTE .MEDSUPPLY #1 ea 12/25/18 Naproxen [Naprosyn] 250 - 500 mg PO Q8H PRN PRN #30 tab 12/31/18 Oxycodone HCl/Acetaminophen [Percocet 5-325] 1 - 2 tablet PO Q4H PRN PRN 7 Days #15 tablet 12/31/18 The following prescriptions were given: Naproxen [Naprosyn] 250 - 500 mg PO Q8H PRN PRN #30 tab PRN Reason: MILD PAIN Transmission Status: Pending to [id number] Oxycodone HCl/Acetaminophen [Percocet 5-325] 1 - 2 tablet PO Q4H PRN PRN 7 Days #15 tablet PRN Reason: Pain Transmission Status: [facility] Follow-Up: Call to make an appointment with your doctor for an incision check in 1-2 weeks. You will also need a 6 week post- follow up appointment. Test results from this visit will be discussed in further detail at your follow- up appointment, if applicable. Please Follow Up With: Patricia Rooney MD - Call to make an appointment for an incision check in 1-2 [phone] When: You will need a post- check in 6 weeks. Primary Care Physician: Marino Hernandez DO [Primary Care Provider] -
[2018-12-31 09:00] VITALS: BP 134/81; PULSE 74; RESP 16; TEMP 36.4
[2018-12-31 14:45] VITALS: BP 141/80; PULSE 100; RESP 16; TEMP 36.5
--- NOTE | 2019-01-04 10:07 | CASEMGMT ---
Social Work Labor and Delivery Help Me Grow referral submitted via the [facility]'s secure web based referral system. nurse visit program referral faxed to the [facility] at [phone] this date. No other services requested or indicated. -LETA Diaz, DIRECTOR OF HOSPITALITY
--- NOTE | 2019-01-07 18:53 | NURSING ---
Mother and baby are doing well. She is pumping and giving in bottle 2 -2 1/2 oz . She is still trying to latch and offered appt . Mother really liked Yuridia , she was fabulous.
--- NOTE | 2019-01-13 04:46 | DS.PCM_ITS ---
Discharge Date and Diagnosis Date of Admission: 12/28/18 Date of Discharge: 12/31/18 Hospital Course and Treatment Operations: - - ltcs Summary of Care Provided: The patient is a 23 year old F presented with non reassuring FHTs and delivered via primary . patient underwent a section and had a routine recovery with a return of bowel and bladder function, was ambulating, voiding, and tolerating po, and was stable for discharge to home on POD 3. - Physical Exam Vital Signs Temp Pulse Resp BP Pulse Ox 97.7 F L 100 16 141/80 H 98 12/31/18 14:45 12/31/18 14:45 12/31/18 14:45 12/31/18 14:45 12/30/18 20:20 Oxygen Delivery Method Room Air Weight: 238 lb Body Mass Index (BMI) 34.1 Discharge Diet: No Restrictions Discharge Activity: May Not Drive - for 2 weeks, May not drive while taking narcotic pain medications., May Shower, May Take a Tub Bath - in 7 days May resume sexual activity in: 4-6 weeks Additional Activity Instructions:: Nothing in the vagina for 4-6 weeks. You may return to work/school in 6 weeks. Call your doctor if your incision/area has: Continuous Slow Oozing, Sudden Increased Bleeding, Increased Pain/ Swelling, Increased Redness, Foul Smelling Discharge Call your doctor if you observe: Fever of 101 or Higher, Using more than one pad per hour - for 2 hours Suture Line Care: Avoid Pulling/Pushing, Avoid Pinching/Bending Cleanse incision/area with: Keep Dressing Clean & Dry Home Medications: Medications to take at Discharge nystatin 100,000 unit/gram topical cream 1 applic TOPICAL BID 10/02/18 vitamin,calcium,xoopagpi-mtnh-vxqez acid tablet 1 tab PO DAILY 10/02/18 triamcinolone acetonide 0.1 % topical cream 1 applic TOPICAL DAILY 10/02/18 Ferrous Sulfate [Iron] 325 mg PO DAILY 12/25/18 miscellaneous medical supply misc See Rx Instructions .ROUTE .MEDSUPPLY #1 ea 12/25/18 Naproxen [Naprosyn] 250 - 500 mg PO Q8H PRN PRN #30 tab 12/31/18 Following Prescrptions Were Given to Patient: Naproxen [Naprosyn] 250 - 500 mg PO Q8H PRN PRN #30 tab PRN Reason: MILD PAIN Transmission Status: Received by [facility] Primary Care Physician: Marino Hernandez, [Primary Care Provider] - Please Follow Up With: Patricia Rooney MD - Call to make an appointment for an incision check in 1-2 [phone] When: You will need a post- check in 6 weeks. Medical Necessity - Tobacco Use Smoking Status: Never smoker Meaningful Use Info Meaningful Use Diagnoses (Choose all that apply): None applicable
== END 2018-12-31 14:45 | disposition home or self-care (01) | DRG 788 ==
LOC: WPOUT 02:54 → WP 03:47
PROVIDERS: Admitting Provider Obstetrics & Gynecology; Family Provider Family Medicine; PCP Family Medicine; Referring Provider Obstetrics & Gynecology; Visit Provider Obstetrics & Gynecology
DX: O14.14 Severe pre-eclampsia complicating childbirth (principal); O60.14X0 Preterm labor third trimester with preterm delivery third trimester, not applicable or unspecified; O76 Abnormality in fetal heart rate and rhythm complicating labor and delivery; Z3A.36 36 weeks gestation of pregnancy; Z37.0 Single live birth
CPT/HCPCS: 59025; 59050; 80053; 85025; 86850; 86900; 88307; 99218; J7120; A4216; G0378; J2405

== ENCOUNTER → 2019-02-16 | Outpatient (CLI) | payer BC, SELFPAY ==
[2019-02-16 13:26] VITALS: BMI 34.1
[2019-02-19 14:29] LABS: HPV Reflexed? NOT INDICATED
== END | disposition home or self-care (01) ==
LOC: LABSPEC 16:57
PROVIDERS: Family Provider Family Medicine; PCP Family Medicine; Referring Provider Obstetrics & Gynecology; Visit Provider Obstetrics & Gynecology
DX: Z12.4 Encounter for screening for malignant neoplasm of cervix (principal)
CPT/HCPCS: 87624; 88175; G0145

== ENCOUNTER → 2020-08-12 11:12 | Outpatient (CLI) | payer OTHER, SELFPAY ==
[2019-02-16 13:26] VITALS: BMI 34.1
[2020-08-12 12:13] LABS: hCG Titer Quant., Serum 1359 mIU/mL (1-3)
== END ==
PROVIDERS: PCP Family Medicine; Referring Provider Obstetrics & Gynecology; Visit Provider Obstetrics & Gynecology
DX: O20.0 Threatened abortion (principal); Z3A.00 Weeks of gestation of pregnancy not specified
CPT/HCPCS: 36415; 84702

== ENCOUNTER → 2020-08-14 15:17 | Outpatient (CLI) | payer OTHER, SELFPAY ==
[2019-02-16 13:26] VITALS: BMI 34.1
[2020-08-14 16:27] LABS: hCG Titer Quant., Serum 2656 mIU/mL (1-3)
== END ==
PROVIDERS: PCP Family Medicine; Referring Provider Nurse Practitioner Women's Health; Visit Provider Nurse Practitioner Women's Health
DX: Z34.90 Encounter for supervision of normal pregnancy, unspecified, unspecified trimester (principal)
CPT/HCPCS: 36415; 84702

== ENCOUNTER → 2020-09-11 10:06 | Outpatient (CLI) | payer OTHER, SELFPAY ==
[2020-09-11 09:35] VITALS: BMI 35.7
[2020-09-11 10:49] LABS: Absolute Lymphocyte Count 1.85 X10^3/uL (0.83-4.51); Absolute Neutrophil Count 5.7 X10^3/uL (2.0-7.7); Basophil# 0.04 X10^3/uL; Basophil% 0.5 % (0-1); Eosinophil# 0.03 X10^3/uL; Eosinophils% 0.4 % (0-5); Hematocrit 40.2 % (37-47); Hemoglobin 13.4 g/dL (12.0-15.0); Lymphocyte # 1.85 X10^3/ul (4.0); Lymphocyte % 22.1 % (19-41); Mean Corp Hgb Conc 33.3 g/dL (32-36); Mean Corpuscular Hgb 27.6 pg (27.0-32.0); Mean Corpuscular Volume 82.9 fL (81-99); Mean Platelet Vol. 9.2 fl (6.2-12.0); Monocyte% 8.3 % (0-10); NRBC Flagged by Analyzer 0 % (0-5); Neutrophil # 5.74 X10^3/uL (2.7-7.7); Neutrophil % 68.3 % (47-70); Platelet Count 302 K/mm3 (150-450); RBC Distribution Width CV 14.1 % (11.6-14.6); RBC Distribution Width SD 42.7 fl (35.1-43.9); Red Blood Count 4.85 M/mm3 (4.2-5.4); White Blood Count 8.4 K/mm3 (4.4-11.0)
[2020-09-11 11:15] LABS: ALB/GLOB Ratio 0.9 RATIO (0.9-2.4); AST(SGOT) 11 U/L (15-37); Alanine Aminotransfer ALT/SGPT 16 U/L (13-56); Albumin, Serum 3.3 g/dL (3.2-5.0); Alkaline Phosphatase 67 U/L (45-117); Anion Gap 5 (5-15); BUN 7 mg/dL (7-18); BUN/Creat Ratio 10.2 RATIO (10-20); Calcium,Total 8.6 mg/dL (8.5-10.1); Chloride 108 mmol/L (98-107); Creatinine, Serum 0.68 mg/dL (0.55-1.02); EST Glomerular Filtration Rate 110 mL/min (>60); Est Glom Filt Rate - Afr Amer 133 mL/min (>60); Globulin 3.5 g/dL (2.2-4.2); Glucose 94 mg/dL (74-106); Glucose Challenge Gest 1H 50g 94 mg/dL (70-140); Potassium 3.4 mmol/L (3.5-5.1); Protein, Total 6.8 g/dL (6.4-8.2); Sodium Level 138 mmol/L (136-145)
[2020-09-11 12:00] LABS: HIV - WCH Non-Reactive (Nonreactive); Hepatitis B Surface Antigen Non-Reactive (Nonreactive); Rubella IgG Reactive (Nonreactive)
[2020-09-11 12:08] LABS: Hepatitis C Antibody REACTIVE (Nonreactive)
[2020-09-11 14:19] LABS: Amphetamine Urine VISTA NEGATIVE (<1000 ng/mL); Barbiturate Urine VISTA NEGATIVE (< 200 ng/mL); Benzodiazepine Urine VISTA NEGATIVE (< 200 ng/mL); Cocaine Urine VISTA NEGATIVE (< 300 ng/mL); Ecstacy Urine VISTA NEGATIVE (< 500 ng/mL); Methadone Urine VISTA NEGATIVE (< 300 ng/mL); PCP Urine VISTA NEGATIVE (< 25 ng/mL); THC Urine VISTA NEGATIVE (< 50 ng/mL); Vista UDS pH Range 7
[2020-09-12 20:07] LABS: Chlamydia By Nucleic Acid AMP Negative (Negative)
[2020-09-12 20:41] LABS: Gonococcus By Nucleic Acid AMP Negative (Negative)
[2020-09-13 04:07] LABS: Dilute Prothrombin Time (dPT) 31.7 sec (0.0-55.0); Dilute Russell Viper Venom 33.5 sec (0.0-47.0); PTT-LA 35.2 sec (0.0-51.9); Thrombin Time 15.7 sec (0.0-23.0); dPT Confirm Ratio 1.12 Ratio (0.00-1.40)
[2020-09-13 08:56] LABS: Anti-Cardiolipin Ab, IgA, Qn < 9 APL U/mL (0-11); Anti-Cardiolipin Ab, IgG, Qn < 9 GPL U/mL (0-14); Anti-Cardiolipin Ab, IgM, Qn 16 MPL U/mL (0-12); Beta-2-Glycoprotein I IgA <9 (0-25); Beta-2-Glycoprotein I IgG <9 (0-20); Beta-2-Glycoprotein I IgM <9 (0-32); Interpretation Comment: (.)
== END ==
PROVIDERS: PCP Family Medicine; Referring Provider Obstetrics & Gynecology; Visit Provider Obstetrics & Gynecology
DX: O09.90 Supervision of high risk pregnancy, unspecified, unspecified trimester (principal); O09.299 Supervision of pregnancy with other poor reproductive or obstetric history, unspecified trimester; N96 Recurrent pregnancy loss; Z3A.00 Weeks of gestation of pregnancy not specified
CPT/HCPCS: 36415; 80053; 80307; 82950; 85025; 86146; 86147; 86703; 86762; 86803; 86850; 86900; 86901; 87086; 87088; 87340; 87491; 87521; 87591

== ENCOUNTER 2020-09-20 13:07 | Outpatient (CLI) | payer OTHER, SELFPAY ==
[2020-09-11 09:35] VITALS: BMI 35.7
[2020-09-20] MEDS: Dextrose 5%-Lactated Ringers 1,000 ML 999 ML IV (13:37)
[2020-09-20 13:43] VITALS: BP 141/75; PULSE 84; RESP 16; TEMP 36.3; O2SAT 97; BMI 35.7
[2020-09-20] MEDS: Ondansetron 4 MG/2 ML Vial IV (13:51)
[2020-09-20 14:50] VITALS: BP 139/66; PULSE 74; RESP 16; TEMP 36.4; O2SAT 100
== END 2020-09-20 16:00 | disposition home or self-care (01) ==
LOC: MEDOUTP 13:08
PROVIDERS: PCP Family Medicine; Referring Provider Obstetrics & Gynecology; Visit Provider Obstetrics & Gynecology
DX: E86.0 Dehydration (principal)
CPT/HCPCS: 96365; 96375; J2405

== ENCOUNTER → 2021-01-08 09:34 | Outpatient (CLI) | payer OTHER, BC, SELFPAY ==
[2021-01-08 09:09] VITALS: BMI 35.7
[2021-01-08 10:52] LABS: Absolute Lymphocyte Count 1.93 X10^3/uL (0.83-4.51); Absolute Neutrophil Count 8.2 X10^3/uL (2.0-7.7); Basophil# 0.04 X10^3/uL; Basophil% 0.4 % (0-1); Eosinophil# 0.06 X10^3/uL; Eosinophils% 0.5 % (0-5); Hematocrit 34.5 % (37-47); Hemoglobin 10.9 g/dL (12.0-15.0); Lymphocyte # 1.93 X10^3/ul (0.83-4.51); Mean Corp Hgb Conc 31.6 g/dL (32-36); Mean Corpuscular Volume 82.3 fL (81-99); Mean Platelet Vol. 8.8 fl (6.2-12.0); Monocyte# 0.91 X10^3/uL; NRBC Flagged by Analyzer 0 % (0-5); Neutrophil # 8.21 X10^3/uL (2.7-7.7); Neutrophil % 72.5 % (47-70); Platelet Count 365 K/mm3 (150-450); RBC Distribution Width CV 13.9 % (11.6-14.6); RBC Distribution Width SD 41.2 fl (35.1-43.9); Red Blood Count 4.19 M/mm3 (4.2-5.4); White Blood Count 11.3 K/mm3 (4.4-11.0)
[2021-01-08 11:30] LABS: ALB/GLOB Ratio 0.6 RATIO (0.9-2.4); AST(SGOT) 18 U/L (15-37); Alanine Aminotransfer ALT/SGPT 19 U/L (13-56); Albumin, Serum 2.5 g/dL (3.2-5.0); Alkaline Phosphatase 105 U/L (45-117); Anion Gap 9 (5-15); BUN 4 mg/dL (7-18); BUN/Creat Ratio 7.2 RATIO (10-20); Calcium,Total 8.3 mg/dL (8.5-10.1); Chloride 105 mmol/L (98-107); Creatinine, Serum 0.56 mg/dL (0.55-1.02); EST Glomerular Filtration Rate 140 mL/min (>60); Est Glom Filt Rate - Afr Amer 169 mL/min (>60); Globulin 4.1 g/dL (2.2-4.2); Glucose 111 mg/dL (74-106); Glucose Challenge Gest 1H 50g 111 mg/dL (70-140); Potassium 3.4 mmol/L (3.5-5.1); Protein, Total 6.6 g/dL (6.4-8.2); Sodium Level 136 mmol/L (136-145)
[2021-01-08 15:55] LABS: Syphilis Antibodies Non-reactive
[2021-01-10 20:10] LABS: Dilute Prothrombin Time (dPT) 27.5 sec (0.0-55.0); Dilute Russell Viper Venom 34.8 sec (0.0-47.0); PTT-LA 38.8 sec (0.0-51.9); Thrombin Time 13.6 sec (0.0-23.0); dPT Confirm Ratio 1.09 Ratio (0.00-1.40)
[2021-01-11 16:06] LABS: Anti-Cardiolipin Ab, IgA, Qn < 9 APL U/mL (0-11); Anti-Cardiolipin Ab, IgG, Qn < 9 GPL U/mL (0-14); Anti-Cardiolipin Ab, IgM, Qn 11 MPL U/mL (0-12); Beta-2-Glycoprotein I IgA <9 (0-25); Beta-2-Glycoprotein I IgG <9 (0-20); Beta-2-Glycoprotein I IgM <9 (0-32); Interpretation Comment: (.)
== END ==
PROVIDERS: Obstetrics & Gynecology; PCP Family Medicine; Referring Provider Nurse Practitioner Women's Health; Visit Provider Nurse Practitioner Women's Health
DX: O09.299 Supervision of pregnancy with other poor reproductive or obstetric history, unspecified trimester (principal); O09.90 Supervision of high risk pregnancy, unspecified, unspecified trimester; N96 Recurrent pregnancy loss; E86.0 Dehydration; Z13.1 Encounter for screening for diabetes mellitus; Z3A.00 Weeks of gestation of pregnancy not specified
CPT/HCPCS: 36415; 80053; 82950; 85025; 86146; 86147; 86780

== ENCOUNTER → 2021-02-16 13:48 | Outpatient (CLI) | payer OTHER, BC, SELFPAY ==
[2021-02-16 15:07] LABS: ALB/GLOB Ratio 0.7 RATIO (0.9-2.4); AST(SGOT) 17 U/L (15-37); Alanine Aminotransfer ALT/SGPT 25 U/L (13-56); Albumin, Serum 2.6 g/dL (3.2-5.0); Alkaline Phosphatase 118 U/L (45-117); Anion Gap 7 (5-15); BUN 4 mg/dL (7-18); BUN/Creat Ratio 9.4 RATIO (10-20); Calcium,Total 8.2 mg/dL (8.5-10.1); Chloride 109 mmol/L (98-107); Creatinine, Serum 0.43 mg/dL (0.55-1.02); EST Glomerular Filtration Rate 189 mL/min (>60); Est Glom Filt Rate - Afr Amer 229 mL/min (>60); Globulin 3.9 g/dL (2.2-4.2); Glucose 78 mg/dL (74-106); Potassium 3.6 mmol/L (3.5-5.1); Protein, Total 6.5 g/dL (6.4-8.2); Sodium Level 137 mmol/L (136-145)
== END ==
PROVIDERS: PCP Family Medicine; Visit Provider Obstetrics & Gynecology
DX: L29.9 Pruritus, unspecified (principal)
CPT/HCPCS: 36415; 80053

== ENCOUNTER 2021-03-08 20:20 | Outpatient (CLI) | payer OTHER, BC, SELFPAY ==
[2021-03-08] VITALS (14 sets, daily range): BP systolic 125–142; BP diastolic 67–83; PULSE 82–100; TEMP 36.2–36.5; O2SAT 98–100; BMI 33.8
[2021-03-08 21:46] LABS: Mucous, Urine 0 SEEN /hpf (<or=2+)
[2021-03-08 21:49] LABS: Hematocrit 35.3 % (37-47); Mean Corp Hgb Conc 31.2 g/dL (32-36); Mean Corpuscular Hgb 24.8 pg (27.0-32.0); Mean Corpuscular Volume 79.5 fL (81-99); Platelet Count 306 K/mm3 (150-450); RBC Distribution Width CV 15.2 % (11.6-14.6); RBC Distribution Width SD 43.2 fl (35.1-43.9); Red Blood Count 4.44 M/mm3 (4.2-5.4); White Blood Count 13.4 K/mm3 (4.4-11.0)
[2021-03-08 21:56] LABS: Color, Urine Yellow (Yellow); Glucose, Dipstick Normal (Normal); Ketone-Dipstick Negative (Negative); Leukocyte Esterase-Dipstick 100 /ul (Negative); Nitrite-Dipstick Negative (Negative); Occult Blood-Urine 10 /ul (Negative); Protein-Dipstick Negative (Negative); Specific Gravity, Urine 1.015 (1.002-1.030); Urine Bilirubin Dipstick Negative (Negative); Urine Clarity Sl. Cloudy (Clear); Urine Urobilinogen Normal (Normal); Urine pH 6.5 (5.0 - 8.0)
[2021-03-08 22:05] LABS: AST(SGOT) 26 U/L (15-37); Alanine Aminotransfer ALT/SGPT 33 U/L (13-56); Creatinine, Serum 0.48 mg/dL (0.55-1.02); EST Glomerular Filtration Rate 165 mL/min (>60); Est Glom Filt Rate - Afr Amer 200 mL/min (>60); Estimated Creatinine Clearance 192.06 ml/min; Uric Acid 3.5 mg/dL (2.6-6.0)
[2021-03-08 22:11] LABS: Squamous Epithelial Cells - UA 0-5 SEEN /hpf (5-10)
[2021-03-08 22:12] LABS: Bacteria RARE /hpf (None Seen); Protein, Urine (Random) 8.1 mg/dL (<11.9); Protein:Creat Ratio 166 mg/g CRE (0-200); Red Blood Cells-Urine 0-5 SEEN /hpf (0-5)
[2021-03-08 22:13] LABS: White Blood Cells 5-10 SEEN /hpf (0-5)
[2021-03-08] MEDS: Betamethasone/Betamethasone 30 MG/5 ML Vial 12 MG IM (22:42)
[2021-03-08] MEDS: Acetaminophen 500 MG Tablet 1000 MG PO (22:42)
[2021-03-08] MEDS: proMETHazine 25 MG Tablet 12.5 MG PO (22:42)
[2021-03-08] MEDS: DiphenhydrAMINE 25 MG Capsule PO (22:42)
--- NOTE | 2021-03-09 09:44 | OB.TRI.HP_ITS ---
HPI - General General Date of Service: 03/08/21 HPI Narrative BERNARDO BONILLA, is a 25 F who presents with headache and visual disturbances. Has headaches persistently for the past few weeks. Comes in this evening because she reports seeing more stars in her vision than previously. Also reports right upper quadrant pain. Has a headache right now but hasn't taken anything for it. Denies chest pain. Reports mild shortness of breath. Maternal Data Information BRITTNEY Calculator Estimated Delivery Date Method Current WG Current Estimate 04/10/21 Ultrasound #1 35w 3d PFSH PFSH Medical History Anemia Anemia Depression with anxiety History of miscarriage, currently Home Medications prenat.vits,aileen,oim-dpld-lzgxo 1 tab PO DAILY 10/02/18 [History Last Taken 03/07/21] Allergy/AdvReac Type Severity Reaction Status Date / Time No Known Allergies Allergy Verified 03/08/21 20:52 Surgical History H/O section H/O knee surgery H/O removal of cyst Social History adopted: No household members: spouse housing: house number of children: 1 current occupational status: employed current occupation: Day care worker- [employer] pets and animals: Yes Smoking Status: Never smoker second hand exposure: No alcohol intake: never substance use type: does not use seatbelt use: always do you feel safe at home: Yes additional social history: Spouse- Luke History 5 Elective abortions Hx Para 1 Spontaneous abortions 3 Hx # Term Pregnancies Ectopic pregnancies Hx # Pregnancies 1 Multiple births # of living children 1 Past Pregnancies Del. Date Name GA/Weeks Outcome Route Bth Weight Infant Gen Labor Lgth Anesthesia Del Locatn Provider FOB 12/28/18 Donald 36 live - 4 lb. 11oz. Male 0 spinal [facility] Nevin Parkinson Delivery Date: 12/28/18 Severe Preeclampsia Distress Juanis Farley Visit Details Expected Delivery Route/Plan patient counseled regarding risks/benefits of trial of labor versus repeat . ACOG/uptodate education given to patient. [] % likelihood of success per calculator TOLAC consent form signed: [] Labor Preferences- CB/BF classes: [] labor support person: [] labor intervention preferences: [] pain management options preferred: [] cut cord/dad catch: [] : [] PP control planned: OCPs discussed possible routes of delivery and associated risks: [] special requests: [] Plans flu vaccine: [] tdap vaccine: [] rhogam: [] LARC form signed: [] Problem list reviewed and updated with the most current plan of care details and appropriate orders placed. Relevant counseling for the gestational age provided. Continue routine care and follow up unless otherwise noted in visit notes/problem list details OB Flowsheet Initial Weight: Not Recorded Date -?-?-?-?-?-?-?-?-?-?-?-?- EGA Weight BP Urine Prot -?-?-?-?-?-?-?-?-?-?-?-?- Glucose FHR FuHt Pres Dilation -?-?-?-?-?-?-?-?-?-?-?-?- Effaced St Visit Note 09/11/20 -?-?-?-?-?-?-?-?-?-?-?-?- 9w 6d 249 lb 2 oz 130/78 -?-?-?-?-?-?-?-?-?-?-?-?- 160 -?-?-?-?-?-?-?-?-?--?-?-?- SM- unknown LMP CRL 2.67cm 10/09/20 -?-?-?-?-?-?-?-?-?-?-?-?- 13w 6d 242 lb 128/82 Negative -?-?-?-?-?-?-?-?-?-?-?-?- Negative 162 -?-?-?-?-?-?-?-?-?-?-?-?- MH-No V, LOF. Na usea still problematic but keeping fluids down. Enc to take zofran preventively to see if more helpful in preventing N&V. Call if persists. 11/06/20 -?-?-?-?-?-?-?-?-?-?-?-?- 17w 6d 241 lb 6 oz 128/70 Nega tive -?-?-?-?-?-?-?-?-?-?-?-?- Negative 150 -?-?-?-?-?-?-?-?--?-?-?-?- GP -no cramping or bleeding. Anatomy not yet scheduled - new order sent. 12/05/20 -?-?-?-?-?-?-?-?-?-?-?-?- 22w 0d 237 lb 118/66 Trace -?-?-?-?-?-?-?-?-?-?-?-?- Negative 142 -?-?-?-?-?-?-?-?-?-?-?-?- MH-No VB, LOF. F eeling movement. 28 wk labs CMP and APl next visit. Reviewed anatomy US BOY! 01/08/21 -?-?-?-?-?-?-?-?-?-?-?-?- 26w 6d 236 lb 130/74 Negative -?-?-?-?-?-?-?-?-?-?-?-?- Negative 135 26 -?-?-?-?-?-?-?-?-?-?-?-?- GP - no LOF, VB, DFM, ctx. GCT, APL labs, CBC, and syphilis today. 01/29/21 -?-?-?-?-?-?-?-?-?-?-?-?- 29w 6d 237 lb 6 oz 130/70 Nega tive -?-?-?-?-?-?-?-?-?-?-?-?- Negative 130 30 -?-?-?-?-?-?-?-?-?-?-?-?- GP - no LOF, VB, dFM, ctx. Having headaches that are tightness in her neck and pressure behind her eyes. BPs normal. Discussed trial of antihistamines. Discussed daily magnesium supplement. 02/16/21 -?-?-?-?-?-?-?-?-?-?-?-?- 32w 3d 237 lb 4 oz 138/80 Nega tive -?-?-?-?-?-?-?-?-?-?-?-?- Negative 135 32 Cephalic -?-?-?-?-?-?-?-?-?-?-?-?- GP - no LOF, VB, dFM, ctx. Having itching on feet and between fingers - CMP and bile acids ordered 03/01/21 -?-?-?-?-?-?-?-?-?-?-?-?- 34w 2d 238 lb 4 oz 128/70 Nega tive -?-?-?-?-?-?-?-?-?-?-?-?- Negative 130 34 Cephalic -?-?-?-?-?-?-?-?-?-?-?-?- GP - no LOF, VB, DFM, ctx. Has occasional cystic lesions on perineum - on exam consistent with inclusion cyst, discussed compresses and sitz baths 03/08/21 -?-?-?-?-?-?-?-?-?-?--?-?- 35w 2d 236 lb 132/74 133/81 132/79 142/82 132/67 133/83 125/74 131/78 133/80 126/78 Negative mg/dl (Nega tive) -?-?-?-?-?-?-?-?-?-?-?-?- -?-?-?-?-?-?-?-?-?-?-?-?- ROS Constitutional Constitutional: Reports headache(s) Eyes Eyes: Reports blurry vision and spots in vision ENT HEENT: Reports headache(s); Denies dizziness Cardiovascular Cardiovascular: Denies chest pain, lightheadedness or palpitations Gastrointestinal Gastrointestinal: Reports nausea Physical Exam Const alert, oriented x3, no apparent distress, average body habitus, healthy appearing and well nourished HEENT normocephalic and moist oral mucous membranes Head and Scalp: atraumatic Eyes PERRL and EOMs intact bilaterally Neck full ROM Resp normal respiratory effort, no retractions and no use of accessory muscles Cardio regular rate and regular rhythm GI soft to palpation, non-tender and non-distended Extremity normal to inspection and full ROM Skin no rashes or lesions noted Neuro moves all extremities, no focal motor deficits, no sensory deficits noted and deep tendon reflexes 2+ bilaterally Motor Exam: strength 5/5 throughout and clonus absent Psych mental status grossly normal, affect normal, speech normal and activity/motor behavior normal NST FHR Rate Baby A Variability:: Moderate Accelerations:: 15 x 15 Decelerations:: None NST Reactive:: Yes FHR Category:: Category I Uterine Activity:: none Assessment & Plan (1) Headache: COMMENT: Seen in triage 03/08. BMZx1 given. PreE labs negative PLAN: Patient presents for evaluation with chronic headaches, but worsening visual disturbances BPs normal aside from isolated mild range BP Given phenergan/benadryl/tylenol and headache improved PreE labs normal with normal P:C BMZ given as symptoms gradually worsening With normal BPs and labs, low suspicion for PreE Will have call office for BP check Charges/Coding Visit Charges Office Visits / Consults: [id number] OV L3 Est Procedures Urinary/Genital 52xxx-59xxx: [id number] non-stress test Interp
== END 2021-03-09 00:37 | disposition home or self-care (01) ==
LOC: WPOUT 20:24 → WP 20:25
PROVIDERS: PCP Family Medicine; Referring Provider Obstetrics & Gynecology; Visit Provider Obstetrics & Gynecology
DX: O26.893 Other specified pregnancy related conditions, third trimester (principal); R51.9 Headache, unspecified; Z3A.35 35 weeks gestation of pregnancy
CPT/HCPCS: 36415; 59025; 59050; 81001; 82565; 82570; 84156; 84450; 84460; 84550; 85027; 96372; 99218; G0378; J0702

== ENCOUNTER → 2021-03-09 13:15 | Outpatient (CLI) | payer OTHER, BC, SELFPAY ==
[2021-03-09 13:31] VITALS: BP 126/75; PULSE 100; RESP 16; TEMP 36.2; O2SAT 100
[2021-03-09] MEDS: 0.9% NaCl Peripheral Flush Adult/Peds IV ×2 (13:34→13:38)
[2021-03-09] MEDS: Ondansetron 4 MG/2 ML Vial IV (13:35)
[2021-03-09] MEDS: Dextrose 5%-Lactated Ringers 1,000 ML 999 ML IV (13:41)
[2021-03-09 14:54] VITALS: BP 136/78; PULSE 93; RESP 16; TEMP 36.1; O2SAT 100
== END ==
PROVIDERS: PCP Family Medicine; Referring Provider Obstetrics & Gynecology; Visit Provider Obstetrics & Gynecology
DX: E86.0 Dehydration (principal)
CPT/HCPCS: 96365; 96375; A4216; J2405

== ENCOUNTER 2021-03-09 20:00 | Outpatient (CLI) | payer OTHER, BC, SELFPAY ==
[2021-03-09] MEDS: Betamethasone/Betamethasone 30 MG/5 ML Vial 12 MG IM (21:26)
--- NOTE | 2021-03-12 08:18 | OB.TRI.HP_ITS ---
HPI - General HPI Narrative BERNARDO BONILLA, is a 25 F who presents with headache and visual disturbances. Has headaches persistently for the past few weeks. Comes in this evening because she reports seeing more stars in her vision than previously. Also reports right upper quadrant pain. Has a headache right now but hasn't taken anything for it. Denies chest pain. Reports mild shortness of breath. Maternal Data Information BRITTNEY Calculator Estimated Delivery Date Method Current WG Current Estimate 04/10/21 Ultrasound #1 35w 6d PFSH PFSH Medical History Anemia Anemia Depression with anxiety History of miscarriage, currently Home Medications prenat.vits,aileen,jjj-kczt-wxmbz 1 tab PO DAILY 10/02/18 [History Last Taken 03/07/21] Allergy/AdvReac Type Severity Reaction Status Date / Time No Known Allergies Allergy Verified 03/08/21 20:52 Surgical History H/O section H/O knee surgery H/O removal of cyst Social History adopted: No household members: spouse housing: house number of children: 1 current occupational status: employed current occupation: Day care worker- [employer] pets and animals: Yes Smoking Status: Never smoker second hand exposure: No alcohol intake: never substance use type: does not use seatbelt use: always do you feel safe at home: Yes additional social history: Spouse- Luke History 5 Elective abortions Hx Para 1 Spontaneous abortions 3 Hx # Term Pregnancies Ectopic pregnancies Hx # Pregnancies 1 Multiple births # of living children 1 Past Pregnancies Del. Date Name GA/Weeks Outcome Route Bth Weight Gen Labor Lgth Anesthesia Del Locatn Provider FOB 12/28/18 Donald 36 live - 4 lb. 11oz. Male [address] [facility] Nevin Parkinson Delivery Date: 12/28/18 Severe Preeclampsia Distress Juanis Farley Visit Details Expected Delivery Route/Plan patient counseled regarding risks/benefits of trial of labor versus repeat . ACOG/uptodate education given to patient. [] % likelihood of success per calculator TOLAC consent form signed: [] Labor Preferences- CB/BF classes: [] labor support person: [] labor intervention preferences: [] pain management options preferred: [] cut cord/dad catch: [] : [] PP control planned: OCPs discussed possible routes of delivery and associated risks: [] special requests: [] Plans flu vaccine: [] tdap vaccine: [] rhogam: [] LARC form signed: [] Problem list reviewed and updated with the most current plan of care details and appropriate orders placed. Relevant counseling for the gestational age provided. Continue routine care and follow up unless otherwise noted in visit notes/problem list details OB Flowsheet Initial Weight: Not Recorded Date -?-?-?-?-?-?-?-?-?-?-?-?- EGA Weight BP Urine Prot -?-?-?-?-?-?-?-?-?-?-?-?- Glucose FHR FuHt Pres Dilation -?-?-?-?-?-?-?-?-?-?-?-?- Effaced St Visit Note 09/11/20 -?-?-?-?-?-?-?-?-?-?-?-?- 9w 6d 249 lb 2 oz 130/78 -?-?-?-?-?-?-?-?-?-?-?-?- 160 -?-?-?-?-?-?-?-?-?-?-?-?- SM- unknown LMP CRL 2.67cm 10/09/20 -?-?-?--?-?-?-?-?-?-?-?-?- 13w 6d 242 lb 128/82 Negative -?-?-?-?-?-?-?-?-?-?-?-?- Negative 162 -?-?-?-?-?-?-?-?-?-?-?-?- MH-No V, LOF. Na usea still problematic but keeping fluids down. Enc to take zofran preventively to see if more helpful in preventing N&V. Call if persists. 11/06/20 -?-?-?-?-?-?-?-?-?-?-?-?- 17w 6d 241 lb 6 oz 128/70 Nega tive -?-?-?-?-?-?-?-?-?-?-?-?- Negative 150 -?-?-?-?-?-?-?-?-?-?-?-?- GP -no cramping or bleeding. Anatomy not yet scheduled - new order sent. 12/05/20 -?-?-?-?-?-?-?-?-?-?-?-?- 22w 0d 237 lb 118/66 Trace -?-?-?-?-?-?-?-?-?-?-?-?- Negative 142 -?-?-?-?-?-?-?-?-?-?-?-?- MH-No VB, LOF. F eeling movement. 28 wk labs CMP and APl next visit. Reviewed anatomy US BOY! 01/08/21 -?-?-?-?-?-?-?-?-?-?-?-?- 26w 6d 236 lb 130/74 Negative -?-?-?-?-?-?-?-?-?-?-?-?- Negative 135 26 -?-?-?-?-?-?-?-?-?-?-?-?- GP - no LOF, VB, DFM, ctx. GCT, APL labs, CBC, and syphilis today. 01/29/21 -?-?-?-?-?-?-?-?-?-?-?-?- 29w 6d 237 lb 6 oz 130/70 Nega tive -?-?-?-?-?-?-?-?-?-?-?-?- Negative 130 30 -?-?-?-?-?-?-?-?-?-?-?-?- GP - no LOF, VB, dFM, ctx. Having headaches that are tightness in her neck and pressure behind her eyes. BPs normal. Discussed trial of antihistamines. Discussed daily magnesium supplement. 02/16/21 -?-?-?-?-?-?-?-?-?-?-?-?- 32w 3d 237 lb 4 oz 138/80 Nega tive -?-?-?-?-?-?-?-?-?-?-?-?- Negative 135 32 Cephalic -?-?-?-?-?-?-?-?-?-?-?-?- GP - no LOF, VB, dFM, ctx. Having itching on feet and between fingers - CMP and bile acids ordered 03/01/21 -?-?-?-?-?-?-?-?-?-?-?-?- 34w 2d 238 lb 4 oz 128/70 Nega tive -?-?-?-?-?-?-?-?-?-?-?-?- Negative 130 34 Cephalic -?-?-?-?-?-?-?-?-?-?-?-?- GP - no LOF, VB, DFM, ctx. Has occasional cystic lesions on perineum - on exam consistent with inclusion cyst, discussed compresses and sitz baths 03/08/21 -?-?-?-?-?-?-?-?-?-?-?-?- 35w 3d 236 lb 132/74 133/81 132/79 142/82 132/67 133/83 125/74 131/78 133/80 126/78 Negative mg/dl (Nega tive) -?-?-?-?-?-?-?-?-?-?-?-?- -?-?-?-?-?-?-?-?-?-?-?-?- 03/09/21 -?-?-?-?-?-?-?-?-?-?-?-?- 35w 3d 127/76 -?-?-?-?-?-?-?-?-?-?-?-?- -?-?-?-?-?-?-?-?-?-?-?-?- RN visit for BP check. BP nl. DOMINIQUE and nausea still present - sent for IV fluids. 03/09/21 -?-?-?-?-?-?-?-?-?-?-?-?- 35w 3d 232 lb 3.2 oz -?-?-?-?-?-?-?-?-?-?-?-?- -?-?-?-?-?-?-?-?-?-?-?-?- ROS Constitutional Constitutional: Reports headache(s) Eyes Eyes: Reports floaters, photophobia and spots in vision; Denies change in vision Cardiovascular Cardiovascular: Reports dyspnea; Denies chest pain, lightheadedness or palpitations Respiratory/Chest Respiratory/Chest: Reports dyspnea Gastrointestinal Gastrointestinal: Reports abdominal pain and nausea; Denies vomiting Musculoskeletal Musculoskeletal: Reports systems reviewed and no addt'l complaints, except as documented Integumentary Integumentary: Reports systems reviewed and no addt'l complaints, except as documented Neurologic Neurologic: Reports systems reviewed and no addt'l complaints, except as documented and headache(s) Psychiatric Psychiatric: Reports systems reviewed and no addt'l complaints, except as documented Physical Exam Const alert, oriented x3, no apparent distress, average body habitus, healthy appearing and well nourished HEENT normocephalic and moist oral mucous membranes Head and Scalp: atraumatic Eyes PERRL and EOMs intact bilaterally Neck full ROM Resp normal respiratory effort, no retractions and no use of accessory muscles Cardio regular rate and regular rhythm GI soft to palpation, non-tender and non-distended Extremity normal to inspection and full ROM Skin no rashes or lesions noted Neuro no focal motor deficits and no sensory deficits noted Psych mental status grossly normal, affect normal, speech normal and activity/motor behavior normal NST FHR Rate Baby A Variability:: Moderate Accelerations:: 15 x 15 Decelerations:: None NST Reactive:: Yes FHR Category:: Category I Uterine Activity:: none Assessment & Plan (1) Headache: COMMENT: Seen in triage 03/08. BMZx1 given. PreE labs negative PLAN: Patient presents for evaluation with chronic headaches, but worsening visual disturbances BPs normal aside from isolated mild range BP Given phenergan/benadryl/tylenol and headache improved PreE labs normal with normal P:C BMZ given as symptoms gradually worsening With normal BPs and labs, low suspicion for PreE Will have call office for BP check Charges/Coding Visit Charges Office Visits / Consults: [id number] OV L3 Est Procedures Urinary/Genital 52xxx-59xxx: [id number] non-stress test Interp
== END 2021-03-09 21:30 | disposition home or self-care (01) ==
LOC: WPOUT 20:15 → WP 20:16
PROVIDERS: PCP Family Medicine; Referring Provider Obstetrics & Gynecology; Visit Provider Obstetrics & Gynecology
DX: O26.893 Other specified pregnancy related conditions, third trimester (principal); R51.9 Headache, unspecified; Z3A.35 35 weeks gestation of pregnancy
CPT/HCPCS: 96372; J0702

== ENCOUNTER 2021-03-15 09:50 | Outpatient (CLI) | payer OTHER, BC, SELFPAY ==
[2021-03-15 10:15] VITALS: BMI 33.3
--- NOTE | 2021-03-15 10:19 | US_ITS ---
STUDY: SECOND AND THIRD TRIMESTER OBSTETRICAL ULTRASOUND - LIMITED REASON FOR EXAM: Female, 25 years old growth LMP: 07/04/2020 PRIOR ULTRASOUND: None. TECHNIQUE: Transabdominal TECHNICAL QUALITY: Adequate. FINDINGS: There is a single intrauterine fetus. The fetus is in a cephalic presentation. There is demonstrated cardiac activity with a heart rate of 120 bpm. There is a normal amniotic fluid volume. The largest amniotic fluid pocket measures 7.47 cm. The amniotic fluid index (EDSON) is 20.79 cm. The placenta is posterior in location and is not low lying. There are Grade 1 placental changes. The cervix measures 4.4 cm in length. BIOMETRY: BPD: 9.03 cm: 36 weeks, 4 days HC: 32.9 cm: 37 weeks, 2 days AC: 34.66 cm: 38 weeks, 3 days FL: 7.06 cm: 36 weeks, 1 days Age by LMP: 36weeks, 2 days. BRITTNEY by LMP: 04/10/2021. age by current US: 37 weeks, 0 days. BRITTNEY by current US: 04/05/2021. Estimated weight: 3299 grams, +/- 495 grams, 87 percentile. US/OB Limited With Biometrics IMPRESSION: Single live intrauterine gestation with a mean gestational age of 37 weeks. Electronically Signed: Terence Hill MD at 13:59 EDT , Service support ,
[2021-03-15] MEDS: Lactated Ringers 1,000 ML 999 ML IV (10:30)
[2021-03-15 10:35] VITALS: BP 127/74; PULSE 90
[2021-03-15] MEDS: Acetaminophen 500 MG Tablet 1000 MG PO (10:44)
[2021-03-15 10:52] VITALS: BP 124/78; PULSE 82
[2021-03-15 11:06] VITALS: BP 120/73; PULSE 83
[2021-03-15 11:07] LABS: Hematocrit 35.5 % (37-47); Hemoglobin 11.1 g/dL (12.0-15.0); Mean Corp Hgb Conc 31.3 g/dL (32-36); Mean Corpuscular Hgb 24.2 pg (27.0-32.0); Mean Corpuscular Volume 77.3 fL (81-99); Mean Platelet Vol. 9.3 fl (6.2-12.0); Platelet Count 356 K/mm3 (150-450); RBC Distribution Width CV 15.5 % (11.6-14.6); RBC Distribution Width SD 43.1 fl (35.1-43.9); Red Blood Count 4.59 M/mm3 (4.2-5.4); White Blood Count 12.1 K/mm3 (4.4-11.0)
[2021-03-15 11:26] LABS: Protein, Urine (Random) < 6.0 mg/dL (<11.9); Protein:Creat Ratio 230 mg/g CRE (0-200)
[2021-03-15 11:41] LABS: ALB/GLOB Ratio 0.6 RATIO (0.9-2.4); AST(SGOT) 17 U/L (15-37); Alanine Aminotransfer ALT/SGPT 34 U/L (13-56); Albumin, Serum 2.5 g/dL (3.2-5.0); Alkaline Phosphatase 143 U/L (45-117); Anion Gap 9 (5-15); BUN 4 mg/dL (7-18); Calcium,Total 8.6 mg/dL (8.5-10.1); Chloride 107 mmol/L (98-107); EST Glomerular Filtration Rate 156 mL/min (>60); Est Glom Filt Rate - Afr Amer 189 mL/min (>60); Estimated Creatinine Clearance 184.38 ml/min; Globulin 4.1 g/dL (2.2-4.2); Glucose 100 mg/dL (74-106); Potassium 3.5 mmol/L (3.5-5.1); Protein, Total 6.6 g/dL (6.4-8.2); Sodium Level 136 mmol/L (136-145)
[2021-03-15 12:23] VITALS: BP 130/73; PULSE 88
--- NOTE | 2021-03-16 09:19 | OB.TRI.PN ---
Progress Notes Date of Service: 03/15/21 Progress Note: Patient presents for triage evaluation secondary to headache FHT: 140 Moderate variability reactive no decelerations category I tracing [place]: no regualr Contractions Assessment and plan: GHTN no proteinuria and DOMINIQUE does not seem to be bp related. normal bps and labs. Reactive NST, reassuring maternal and status patient discharged to home to follow-up as schedule plan 37 week delivery due to GHTN. See problem list details for additional plan information. Laboratory Studies: Laboratory Tests 03/15/21 03/15/21 03/15/21 Range/Units 10:30 10:30 10:30 WBC (4.4-11.0) K/mm3 RBC (4.2-5.4) M/mm3 Hgb (12.0-15.0) g/dL Hct (37-47) % MCV (81-99) fL MCH (27.0-32.0) pg MCHC (32-36) g/dL RDW Std Deviation (35.1-43.9) fl RDW Coeff of Chriss (11.6-14.6) % Plt Count (150-450) K/mm3 MPV (6.2-12.0) fl Sodium 136 (136-145) mmol/L Potassium 3.5 (3.5-5.1) mmol/L Chloride 107 (98-107) mmol/L Carbon Dioxide 20.0 L (21.0-32.0) mmol/L Anion Gap 9 (5-15) BUN 4 L (7-18) mg/dL Creatinine 0.50 L (0.55-1.02) mg/dL Estim Creat Clear Calc 184.38 ml/min Est GFR (MDRD) Af Amer 189 (>60) mL/min Est GFR (MDRD) Non-Af 156 (>60) mL/min BUN/Creatinine Ratio 8.0 L (10-20) RATIO Glucose 100 (74-106) mg/dL Calcium 8.6 (8.5-10.1) mg/dL Total Bilirubin 0.30 (0.20-1.00) mg/dL AST 17 (15-37) U/L ALT 34 (13-56) U/L Alkaline Phosphatase 143 H (45-117) U/L Total Protein 6.6 (6.4-8.2) g/dL Albumin 2.5 L (3.2-5.0) g/dL Globulin 4.1 (2.2-4.2) g/dL Albumin/Globulin Ratio 0.6 L (0.9-2.4) RATIO U Random Total Protein < 6.0 (<11.9) mg/dL Urine Creatinine 21.70 (NO RANGE EST.) mg/dL Protein/Creatinin Ratio 230 H (0-200) mg/g CRE Blood Type O POSITIVE Antibody Screen NEGATIVE 03/15/21 Range/Units 10:30 WBC 12.1 H (4.4-11.0) K/mm3 RBC 4.59 (4.2-5.4) M/mm3 Hgb 11.1 L (12.0-15.0) g/dL Hct 35.5 L (37-47) % MCV 77.3 L (81-99) fL MCH 24.2 L (27.0-32.0) pg MCHC 31.3 L (32-36) g/dL RDW Std Deviation 43.1 (35.1-43.9) fl RDW Coeff of Chriss 15.5 H (11.6-14.6) % Plt Count 356 (150-450) K/mm3 MPV 9.3 (6.2-12.0) fl Sodium (136-145) mmol/L Potassium (3.5-5.1) mmol/L Chloride (98-107) mmol/L Carbon Dioxide (21.0-32.0) mmol/L Anion Gap (5-15) BUN (7-18) mg/dL Creatinine (0.55-1.02) mg/dL Estim Creat Clear Calc ml/min Est GFR (MDRD) Af Amer (>60) mL/min Est GFR (MDRD) Non-Af (>60) mL/min BUN/Creatinine Ratio (10-20) RATIO Glucose (74-106) mg/dL Calcium (8.5-10.1) mg/dL Total Bilirubin (0.20-1.00) mg/dL AST (15-37) U/L ALT (13-56) U/L Alkaline Phosphatase (45-117) U/L Total Protein (6.4-8.2) g/dL Albumin (3.2-5.0) g/dL Globulin (2.2-4.2) g/dL Albumin/Globulin Ratio (0.9-2.4) RATIO U Random Total Protein (<11.9) mg/dL Urine Creatinine (NO RANGE EST.) mg/dL Protein/Creatinin Ratio (0-200) mg/g CRE Blood Type Antibody Screen Charges/Coding Procedures Urinary/Genital [id number]: [id number] non-stress test Interp Assessment & Plan (1) Gestational hypertension: COMMENT: plan 37 week cs with GP
== END 2021-03-15 12:33 | disposition home or self-care (01) ==
LOC: WPOUT 09:59 → WP 10:14
PROVIDERS: PCP Family Medicine; Visit Provider Obstetrics & Gynecology
DX: O13.3 Gestational [pregnancy-induced] hypertension without significant proteinuria, third trimester (principal); Z3A.37 37 weeks gestation of pregnancy
CPT/HCPCS: 96365; 96366; 59025; 59050; 76816; 80053; 82570; 84156; 85027; 86850; 86900; 86901; 99218; J7120; G0378

== ENCOUNTER → 2021-03-15 12:41 | Outpatient (CLI) | payer OTHER, BC, SELFPAY | PROVIDERS: PCP Family Medicine; Referring Provider Obstetrics & Gynecology; Visit Provider Obstetrics & Gynecology | DX: O09.90 Supervision of high risk pregnancy, unspecified, unspecified trimester (principal); Z3A.00 Weeks of gestation of pregnancy not specified | CPT/HCPCS: 87635; C9803; U0003 ==

== ENCOUNTER → 2021-03-15 12:42 | Outpatient (CLI) | payer OTHER, BC, SELFPAY | PROVIDERS: PCP Family Medicine; Visit Provider Obstetrics & Gynecology | DX: O09.90 Supervision of high risk pregnancy, unspecified, unspecified trimester (principal); Z3A.00 Weeks of gestation of pregnancy not specified | CPT/HCPCS: 87081 ==

== ENCOUNTER → 2021-03-19 11:40 | Outpatient (CLI) | payer OTHER, BC, SELFPAY ==
[2021-03-19 11:57] LABS: Absolute Lymphocyte Count 2.13 X10^3/uL (0.83-4.51); Absolute Neutrophil Count 8.4 X10^3/uL (2.0-7.7); Basophil# 0.04 X10^3/uL; Basophil% 0.3 % (0-1); Eosinophil# 0.04 X10^3/uL; Eosinophils% 0.3 % (0-5); Hematocrit 33.8 % (37-47); Hemoglobin 10.5 g/dL (12.0-15.0); Lymphocyte # 2.13 X10^3/ul (0.83-4.51); Lymphocyte % 17.8 % (19-41); Mean Corp Hgb Conc 31.1 g/dL (32-36); Mean Corpuscular Hgb 24.2 pg (27.0-32.0); Mean Corpuscular Volume 77.9 fL (81-99); Mean Platelet Vol. 8.8 fl (6.2-12.0); Monocyte# 1.24 X10^3/uL; Monocyte% 10.4 % (0-10); NRBC Flagged by Analyzer 0 % (0-5); Neutrophil # 8.35 X10^3/uL (2.7-7.7); Platelet Count 302 K/mm3 (150-450); RBC Distribution Width CV 15.9 % (11.6-14.6); RBC Distribution Width SD 44.7 fl (35.1-43.9); Red Blood Count 4.34 M/mm3 (4.2-5.4); White Blood Count 11.9 K/mm3 (4.4-11.0)
[2021-03-19 12:15] LABS: ALB/GLOB Ratio 0.6 RATIO (0.9-2.4); AST(SGOT) 18 U/L (15-37); Alanine Aminotransfer ALT/SGPT 28 U/L (13-56); Albumin, Serum 2.4 g/dL (3.2-5.0); Alkaline Phosphatase 147 U/L (45-117); Anion Gap 5 (5-15); BUN 4 mg/dL (7-18); BUN/Creat Ratio 7.4 RATIO (10-20); Calcium,Total 8.6 mg/dL (8.5-10.1); Chloride 108 mmol/L (98-107); Creatinine, Serum 0.54 mg/dL (0.55-1.02); EST Glomerular Filtration Rate 144 mL/min (>60); Est Glom Filt Rate - Afr Amer 174 mL/min (>60); Globulin 4.1 g/dL (2.2-4.2); Glucose 80 mg/dL (74-106); Potassium 3.6 mmol/L (3.5-5.1); Protein, Total 6.5 g/dL (6.4-8.2); Sodium Level 136 mmol/L (136-145)
== END ==
PROVIDERS: PCP Family Medicine; Referring Provider Obstetrics & Gynecology; Visit Provider Obstetrics & Gynecology
DX: O13.9 Gestational [pregnancy-induced] hypertension without significant proteinuria, unspecified trimester (principal); Z3A.00 Weeks of gestation of pregnancy not specified
CPT/HCPCS: 36415; 80053; 85025

== ENCOUNTER 2021-03-21 05:00 | Inpatient (IN) | payer OTHER, BC, SELFPAY ==
[2021-03-21] VITALS (19 sets, daily range): BP systolic 103–134; BP diastolic 52–72; PULSE 69–90; RESP 16–20; TEMP 35.6–36.8; O2SAT 96–100; BMI 34.2
[2021-03-21] MEDS: Lactated Ringers 1,000 ML 999 ML IV (05:40)
--- NOTE | 2021-03-21 05:41 | HP.PCM.OB_ITS ---
HPI - General General Date of Admission: 03/21/21 HPI Narrative BERNARDO BONILLA, is a 25 F at 37/1 who presents for repeat for gestational hypertension. Maternal Data Information BRITTNEY Calculator Estimated Delivery Date Method Current WG Current Estimate 04/10/21 Ultrasound #1 37w 1d PFSH PFSH Medical History Anemia Anemia Depression with anxiety History of miscarriage, currently Home Medications prenat.vits,aileen,fra-ryst-tnkzb 1 tab PO DAILY 10/02/18 [History Last Taken 03/14/21 22:00] Allergy/AdvReac Type Severity Reaction Status Date / Time No Known Allergies Allergy Verified 03/19/21 11:20 Surgical History H/O section H/O knee surgery H/O removal of cyst Social History adopted: No household members: spouse housing: house number of children: 1 current occupational status: employed current occupation: Day care worker- [employer] pets and animals: Yes Smoking Status: Never smoker second hand exposure: No alcohol intake: never substance use type: does not use seatbelt use: always do you feel safe at home: Yes additional social history: Spouse- Luke History 5 Elective abortions Hx Para 1 Spontaneous abortions 3 Hx # Term Pregnancies Ectopic pregnancies Hx # Pregnancies 1 Multiple births # of living children 1 Past Pregnancies Del. Date Name GA/Weeks Outcome Route Bth Weight Gen Labor Lgth Anesthesia Del [facility] Provider FOB 12/28/18 Donald 36 live - 4 lb. 11oz. Male 0 spinal [facility] Nevin Parkinson Delivery Date: 12/28/18 Severe Preeclampsia Distress Juanis Farlye Visit Details Expected Delivery Route/Plan plan RLTCS Labor Preferences- CB/BF classes: [] labor support person: [] labor intervention preferences: [] pain management options preferred: [] cut cord/dad catch: [] : [] PP control planned: OCPs discussed possible routes of delivery and associated risks: [] special requests: [] Plans flu vaccine: [] tdap vaccine: [] rhogam: [] LARC form signed: [] Problem list reviewed and updated with the most current plan of care details and appropriate orders placed. Relevant counseling for the gestational age provided. Continue routine care and follow up unless otherwise noted in visit notes/problem list details OB Flowsheet Initial Weight: Not Recorded Date -?-?-?-?-?-?-?-?-?-?-?-?- EGA Weight BP Urine Prot -?-?-?-?-?-?-?-?-?-?-?-?- Glucose FHR FuHt Pres Dilation -?-?-?-?-?-?-?-?-?-?-?-?- Effaced St Visit Note 09/11/20 -?-?--?-?-?-?-?-?-?-?-?-?- 9w 6d 249 lb 2 oz 130/78 -?-?-?-?-?-?-?-?-?-?-?-?- 160 -?-?-?-?-?-?-?-?-?-?-?-?- SM- unknown LMP CRL 2.67cm 10/09/20 -?-?-?-?-?-?-?-?-?-?-?-?- 13w 6d 242 lb 128/82 Negative -?-?-?-?-?-?-?-?-?-?-?-?- Negative 162 -?-?-?-?-?-?-?-?-?-?-?-?- MH-No V, LOF. Na usea still problematic but keeping fluids down. Enc to take zofran preventively to see if more helpful in preventing N&V. Call if persists. 11/06/20 -?-?-?-?-?-?-?-?-?-?-?-?- 17w 6d 241 lb 6 oz 128/70 Nega tive -?-?-?-?-?-?-?-?-?-?-?-?- Negative 150 -?-?-?-?-?-?-?-?-?-?-?-?- GP -no cramping or bleeding. Anatomy not yet scheduled - new order sent. 12/05/20 -?-?-?-?-?-?-?-?-?-?-?-?- 22w 0d 237 lb 118/66 Trace -?-?-?-?-?-?-?-?-?-?-?-?- Negative 142 -?-?-?-?-?-?-?-?-?-?-?-?- MH-No VB, LOF. F eeling movement. 28 wk labs CMP and APl next visit. Reviewed anatomy US BOY! 01/08/21 -?-?-?-?-?-?-?-?-?-?-?-?- 26w 6d 236 lb 130/74 Negative -?-?-?-?-?-?-?-?-?-?-?-?- Negative 135 26 -?-?-?-?-?-?-?-?-?-?-?-?- GP - no LOF, VB, DFM, ctx. GCT, APL labs, CBC, and syphilis today. 01/29/21 -?-?-?-?-?-?-?-?-?-?-?-?- 29w 6d 237 lb 6 oz 130/70 Nega tive -?-?-?-?-?-?-?-?-?-?-?-?- Negative 130 30 -?-?-?-?-?-?-?-?-?-?-?-?- GP - no LOF, VB, dFM, ctx. Having headaches that are tightness in her neck and pressure behind her eyes. BPs normal. Discussed trial of antihistamines. Discussed daily magnesium supplement. 02/16/21 -?-?-?-?-?-?-?-?-?-?-?-?- 32w 3d 237 lb 4 oz 138/80 Nega tive -?-?-?-?-?-?-?-?-?-?-?-?- Negative 135 32 Cephalic -?-?--?-?-?-?-?-?-?-?-?-?- GP - no LOF, VB, dFM, ctx. Having itching on feet and between fingers - CMP and bile acids ordered 03/01/21 -?-?-?-?-?-?-?-?-?-?-?-?- 34w 2d 238 lb 4 oz 128/70 Nega tive -?-?-?-?-?-?-?-?-?-?-?-?- Negative 130 34 Cephalic -?-?-?-?-?-?-?-?-?-?-?-?- GP - no LOF, VB, DFM, ctx. Has occasional cystic lesions on perineum - on exam consistent with inclusion cyst, discussed compresses and sitz baths 03/08/21 -?-?-?-?-?-?-?-?-?-?-?-?- 35w 3d 236 lb 132/74 133/81 132/79 142/82 132/67 133/83 125/74 131/78 133/80 126/78 Negative mg/dl (Nega tive) -?-?-?-?-?-?-?-?-?-?-?-?- -?-?-?-?-?-?-?-?-?-?-?-?- 03/09/21 -?-?-?-?-?-?-?-?-?-?-?-?- 35w 3d 127/76 -?-?-?-?-?-?-?-?-?-?-?-?- -?-?-?-?-?-?-?-?-?-?-?-?- RN visit for BP check. BP nl. DOMINIQUE and nausea still present - sent for IV fluids. 03/09/21 -?-?-?-?-?-?-?-?-?-?-?-?- 35w 3d 232 lb 3.2 oz -?-?-?-?-?-?-?-?-?-?-?-?- -?-?-?-?-?-?-?-?-?-?-?-?- 03/15/21 -?-?-?-?-?-?-?-?-?-?-?-?- 36w 2d 236 lb 140/80 Negative -?-?-?-?-?-?-?-?-?-?-?-?- Negative 120 36 0 -?-?-?-?-?-?--?-?-?-?-?-?- SM- no vb lof go od fm no regular ctx still having persistent DOMINIQUE and bp elevated otday, has not resolved with medication. preivous preeclampsia labs WNL. growth us ordered 03/19/21 -?-?-?-?-?-?-?-?-?-?-?-?- 36w 6d 236 lb 150/80 Negative -?-?-?-?-?-?-?-?-?-?-?-?- Negative 130 37 Cephalic -?-?-?-?-?-?-?-?-?-?-?-?- GP -no LOF, VB, DFM, ctx. BP elevated but asymptomatic. Plan RCD on 03/2103/21/21 -?-?-?-?-?-?-?-?-?-?-?-?- 37w 1d -?-?-?-?-?-?-?-?-?-?-?-?- -?-?-?-?-?-?-?-?-?-?-?-?- ROS Eyes Eyes: Reports systems reviewed and no addt'l complaints, except as documented ENT HEENT: Reports systems reviewed and no addt'l complaints, except as documented Cardiovascular Cardiovascular: Reports systems reviewed and no addt'l complaints, except as documented Respiratory/Chest Respiratory/Chest: Reports systems reviewed and no addt'l complaints, except as documented Gastrointestinal Gastrointestinal: Reports systems reviewed and no addt'l complaints, except as documented Genitourinary Genitourinary: Reports systems reviewed and no addt'l complaints, except as documented Musculoskeletal Musculoskeletal: Reports systems reviewed and no addt'l complaints, except as documented Integumentary Integumentary: Reports systems reviewed and no addt'l complaints, except as documented Neurologic Neurologic: Reports systems reviewed and no addt'l complaints, except as documented Psychiatric Psychiatric: Reports systems reviewed and no addt'l complaints, except as docume nted Endocrine Endocrinology: Reports systems reviewed and no addt'l complaints, except as documented Hematologic/Lymphatic Hematologic/Lymphatic: Reports systems reviewed and no addt'l complaints, except as documented Allergic/Immunologic Allergic/Immunologic: Reports systems reviewed and no addt'l complaints, except as documented Physical Exam Const alert, oriented x3, no apparent distress, average body habitus, healthy appearing and well nourished HEENT normocephalic and moist oral mucous membranes Head and Scalp: atraumatic Eyes PERRL and EOMs intact bilaterally Neck full ROM Resp normal respiratory effort, no retractions and no use of accessory muscles Cardio regular rate and regular rhythm GI soft to palpation, non-tender and non-distended Extremity normal to inspection and full ROM Skin no rashes or lesions noted Neuro no focal motor deficits and no sensory deficits noted Psych mental status grossly normal, affect normal, speech normal and activity/motor behavior normal Labs Labs Labs: Blood Type O POSITIVE Antibody Screen NEGATIVE Hct 33.8 % (37-47) L Hgb 10.5 g/dL (12.0-15.0) L Obstetrics US Syphilis Total Ab Non-reactive Rubella IgG Antibody Reactive (Nonreactive) Hep Bs Antigen Non-Reactive (Nonreactive) Neisseria gonorrhoeae DNA (BERYL) Negative (Negative) HIV 1&2 Antibody Non-Reactive (Nonreactive) Glucose 1 Hr 50 gm 111 mg/dL (70-140) Rhogam given: No Miscellaneous Test Assessment & Plan (1) Gestational hypertension: COMMENT: plan 37 week cs with GP (2) Anemia: COMMENT: iron (3) Obesity affecting : COMMENT: BMI 35. 1tm GCT ordered. healthy weight gain encouraged. (4) H/O delivery, currently : COMMENT: STAT C/S @ 36 weeks d/t pre-e & distress (5) Anxiety and depression: COMMENT: no meds, counseling encouraged. (6) H/O section: COMMENT: STAT C/S, may consider TOLAC (7) H/O pre-eclampsia in prior , currently : COMMENT: pre-eclampsia with severe features, APL panel and baseline labs ordered. plan 81mg asa now due to APL borderline elevated repeat 3 mo. APL nl (8) Supervision of high risk , antepartum: COMMENT: PRR BRITTNEY: 04/10/21 Boy! Tiegan (sp?) PC: Donald Spouse: Iggy (9) : QUALIFIERS: Weeks of gestation: 36 weeks Qualified Code(s): Z3A.36 - 36 weeks gestation of COMMENT: GBS negative, declines genetic, ntd, and carrier screening. nl anatomy
[2021-03-21 06:00] LABS: Absolute Lymphocyte Count 2.66 X10^3/uL (0.83-4.51); Absolute Neutrophil Count 8.8 X10^3/uL (2.0-7.7); Basophil# 0.04 X10^3/uL; Basophil% 0.3 % (0-1); Eosinophil# 0.09 X10^3/uL; Eosinophils% 0.7 % (0-5); Hematocrit 33.8 % (37-47); Hemoglobin 10.6 g/dL (12.0-15.0); Lymphocyte # 2.66 X10^3/ul (0.83-4.51); Lymphocyte % 20.2 % (19-41); Mean Corp Hgb Conc 31.4 g/dL (32-36); Mean Corpuscular Hgb 24.5 pg (27.0-32.0); Mean Corpuscular Volume 78.1 fL (81-99); Mean Platelet Vol. 9.2 fl (6.2-12.0); Monocyte% 10.6 % (0-10); NRBC Flagged by Analyzer 0 % (0-5); Neutrophil # 8.83 X10^3/uL (2.7-7.7); Neutrophil % 67.2 % (47-70); Platelet Count 314 K/mm3 (150-450); RBC Distribution Width CV 15.9 % (11.6-14.6); RBC Distribution Width SD 44.6 fl (35.1-43.9); Red Blood Count 4.33 M/mm3 (4.2-5.4); White Blood Count 13.2 K/mm3 (4.4-11.0)
[2021-03-21] MEDS: Acetaminophen 500 MG Tablet 1000 MG PO ×3 (06:30→19:28)
[2021-03-21] MEDS: Lactated Ringers 1,000 ML 150 ML IV (06:41)
[2021-03-21] MEDS: Sodium Citrate/Citric Acid 30 ML UDC PO (07:14)
[2021-03-21] MEDS: Cefazolin 2 GM in 0.9% Normal Saline 100 ML IV (07:21)
[2021-03-21] MEDS: Oxytocin 30 units/NS 500 ml 30 UNITS/500 ML IV.SOLN 167 UNITS IV (08:30)
--- NOTE | 2021-03-21 08:42 | OP.PCM_ITS ---
Assessment & Plan (1) delivery delivered: COMMENT: GP RLTCS 03/21 gHTN Sukumar - Tiegan (2) : QUALIFIERS: Weeks of gestation: 36 weeks Qualified Code(s): Z3A.36 - 36 weeks gestation of COMMENT: GBS negative, declines genetic, ntd, and carrier screening. nl anatomy (3) Supervision of high risk , antepartum: COMMENT: PRR BRITTNEY: 04/10/21 Boy! Jessicagan (sp?) PC: Donald Spouse: Iggy (4) H/O pre-eclampsia in prior , currently : COMMENT: pre-eclampsia with severe features, APL panel and baseline labs ordered. plan 81mg asa now due to APL borderline elevated repeat 3 mo. APL nl (5) H/O section: COMMENT: STAT C/S, may consider TOLAC (6) Anxiety and depression: COMMENT: no meds, counseling encouraged. (7) H/O delivery, currently : COMMENT: STAT C/S @ 36 weeks d/t pre-e & distress (8) Obesity affecting : COMMENT: BMI 35. 1tm GCT ordered. healthy weight gain encouraged. (9) Gestational hypertension: COMMENT: plan 37 week cs with GP (10) Anemia: COMMENT: iron Maternal Data Information BRITTNEY Calculator Estimated Delivery Date Method Current WG Current Estimate 04/10/21 Ultrasound #1 37w 1d Details Operative Information Date of Procedure: 03/21/21 Pre-Operative Diagnosis: IUP at 37 weeks gestation, Gestational hypertension, History of Post-Operative Diagnosis: Same Indications for : Repeat Elective Indications Narrative: 25-year-old G2, P1 at 37 weeks admitted for repeat C- section for gestational hypertension Classification: Scheduled Procedure Type: low transverse flux tube attendant #1: Sayra Prieto Type of Anesthesia: Spinal Antibiotic Given: Ancef 2 grams IV x1 Drain: Grant to straight drain Estimated Blood Loss: 500 Findings Description of Procedure: The patient is a 25-year-old G2, P1 at 37 weeks presented for repeat . Spinal anesthesia was placed without difficulty. Grant catheter was placed. The patient was placed in the dorsal supine position with leftward tilt. Patient was prepped and draped in the normal sterile fashion. Pfannenstiel skin incision was made with the scalpel and carried through to the underlying layer of fascia with the scalpel. Fascia was nicked in the midline and the incision extended laterally. The rectus bellies were dissected off superiorly and inferiorly with out complication both sharply and bluntly. The peritoneum was entered digitally. The lower uterine segment was inspected and noted to be extremely. The incision was stretched and a low transverse uterine incision was made with the scalpel. The 's head was delivered atraumatically followed by the anterior and posterior shoulders without complication the rest of the infant delivered. The cord was clamped and cut and the was handed off to awaiting nurse. The placenta was delivered spontaneously immediately following and was noted to be intact and have a three- vessel cord. The uterus was exteriorized cleared of all clots and debris, and the incision was closed in a double layer closure using #1 Monocryl. The ovaries and fallopian tubes were noted to be within normal limits. The uterus was returned to the maternal abdomen and gutters were cleared of all clots and debris. The peritoneum was closed with 3-0 Monocryl in a running fashion. Gloves were changed prior to fascial closure. Fascia was closed with 0 PDS in a running fashion. Subcutaneous tissue was copiously irrigated and the skin was closed with 3-0 Monocryl in a subcuticular fashion. Mepilex dressing was applied without complication. Patient was taken to recovery in stable condition. It was discussed with the patient that based on the clinical information obtained during this encounter, combined with her history, at this time I would recommend repeat C-sections for future deliveries if further pregnancies are desired. Presentation: Positive for Vertex and ELIAS Amniotic Membrane Rupture Type: Spontaneous Amniotic Fluid Description: Clear Placental Delivery Description: Spontaneous Placenta Disposition: [facility] Cord Vessel Description: 3 Vessels Cord Entanglement: None Infant A Gender: Male Delayed Cord Clamping: Yes Complications Risks of Surgery Discussed w/Patient: Bleeding, Anesthesia Risks, Infection and Injury to surrounding structure(s) including bowel and bladder
--- NOTE | 2021-03-21 08:48 | PCM.DC ---
Discharge Instructions Diet Discharge Diet: No restrictions Activity May resume sexual activity in: 4-6 weeks Lifting Restrictions: 20 lbs Additional Activity Instructions:: Nothing in the vagina for 4-6 weeks. You may return to work/school in 6 weeks. Dressing / Incision Call your doctor if your incision/area has: Continuous Slow Oozing, Sudden Increased Bleeding, Increased Pain/ Swelling, Increased Redness and Foul Smelling Discharge Call your doctor if you observe: Fever of 101 or Higher Suture Line Care: Avoid Pulling/Pushing and Avoid Pinching/Bending Follow Up Care When: Call to make an appointment with your doctor for an incision check in 1-2 weeks. You will also need a 6 week post- follow up appointment. Test Results: Test results from this visit will be discussed in further detail at your follow-up appointment, if applicable. Discharge Plan Admission Admit Date/Time: 03/21/21 05:00 Primary Reason for Your Visit: Repeat Attending Provider: Malinda Mcdonough Primary Care Provider: Marino Hernandez Instructions Patient Instructions: After a Discharge Orders/Prescriptions Prescriptions: New ibuprofen 800 mg tablet 800 mg PO Q8H PRN (Reason: pain) Qty: 60 RF: 1 oxycodone 5 mg capsule 5 mg PO Q6H PRN (Reason: pain) 7 Days Qty: 15 RF: 0 Continued prenat.vits,aileen,ryw-hwbo-wkiqu tablet 1 tab PO DAILY RF: 0 Referrals / Follow Up: Marino Hernandez, [Primary Care Provider] -
[2021-03-21] MEDS: Ketorolac 30 MG/ML Syringe IV ×3 (09:19→21:30)
[2021-03-21] MEDS: Lactated Ringers 1,000 ML 100 ML IV (11:42)
[2021-03-21] MEDS: Ondansetron 4 MG/2 ML Vial IV (15:29)
[2021-03-21] MEDS: 0.9% Saline Lock 10 ML Syringe IV (15:29)
--- NOTE | 2021-03-21 19:45 | NURSING ---
pt has indwelling urinary catheter at this time
--- NOTE | 2021-03-21 23:02 | NURSING ---
pulse ox removed at this time, 12 hours of monitoring per orders completed
[2021-03-22 00:57] VITALS: BP 120/71; PULSE 71; RESP 18; TEMP 36.6
[2021-03-22] MEDS: Acetaminophen 500 MG Tablet 1000 MG PO ×4 (01:05→18:34)
[2021-03-22 04:15] VITALS: BP 124/63; PULSE 75; RESP 18; TEMP 36.6
[2021-03-22] MEDS: Ketorolac 30 MG/ML Syringe IV (04:15)
[2021-03-22] MEDS: 0.9% Saline Lock 10 ML Syringe IV (04:15)
[2021-03-22 05:56] LABS: Mean Corpuscular Hgb 24.3 pg (27.0-32.0); Mean Corpuscular Volume 78.4 fL (81-99); Mean Platelet Vol. 8.9 fl (6.2-12.0); Platelet Count 264 K/mm3 (150-450); RBC Distribution Width CV 16.3 % (11.6-14.6); RBC Distribution Width SD 45.8 fl (35.1-43.9); White Blood Count 15.2 K/mm3 (4.4-11.0)
--- NOTE | 2021-03-22 07:32 | NURSING ---
report given to Rohini Roldan RN and Phyllis DENISE who are assuming care of pt at this time
--- NOTE | 2021-03-22 08:44 | PCM.PN.OB ---
Subjective Subjective Patient doing well without complaints. Tolerating PO. Ambulating and voiding without difficulty. Breast feeding well. Denies chest pain, shortness of breath, calf pain/swelling, fevers, chills, lightheadedness. Objective Data Objective Data Vital Signs: Vital Signs Temp Pulse Resp BP Pulse Ox 97.9 F 75 18 124/63 H 100 03/22/21 04:15 03/22/21 04:15 03/22/21 04:15 03/22/21 04:15 03/21/21 19:50 Oxygen Delivery Method Room Air Weight: 232 lb 3.2 oz Body Mass Index (BMI) 34.2 Intake & Output: Intake and Output for Last 24 Hours 03/20/21 03/21/21 03/22/21 23:59 23:59 23:59 Intake Total 3050 / 3050 Output Total 630 / 630 800 / 800 Balance 2420 / 2420 -800 / -800 Lab / Micro Data Result Diagrams: 03/22/21 05:45 Labs: Laboratory Results - last 24 hr 03/22/21 05:45: WBC 15.2 H, RBC 3.70 L, Hgb 9.0 L, Hct 29.0 L, MCV 78.4 L, MCH 24.3 L, MCHC 31.0 L, RDW Std Deviation 45.8 H, RDW Coeff of Chriss 16.3 H, Plt Count 264, MPV 8.9 ROS Constitutional Constitutional: Denies fever(s) Cardiovascular Cardiovascular: Denies chest pain, dyspnea or lightheadedness Gastrointestinal Gastrointestinal: Reports abdominal pain; Denies constipation or diarrhea Neurologic Neurologic: Denies dizziness or headache(s) Physical Exam Const alert, oriented x3, no apparent distress, average body habitus, healthy appearing and well nourished HEENT normocephalic Head and Scalp: atraumatic Eyes PERRL and EOMs intact bilaterally Neck full ROM Lymph Lymphatic: no lymphadenopathy noted Resp normal respiratory effort, no retractions and no use of accessory muscles Cardio regular rate GI soft to palpation, non-tender and non-distended Inspection: incision intact and other (dressing in place) Palpation: other Other Details: fundus firm Extremity normal to inspection and no clubbing, cyanosis or edema Skin no rashes or lesions noted Neuro no focal motor deficits and no sensory deficits noted Psych mental status grossly normal, affect normal and speech normal Assessment & Plan (1) delivery delivered: PLAN: s/p LTCS PPD # 1 1. routine post care 2. breast feeding- support given 3. rh positive 4. rubella immune
[2021-03-22 08:45] VITALS: BP 117/60; PULSE 76; RESP 16; TEMP 36.9
[2021-03-22] MEDS: Ibuprofen 600 MG Tablet PO ×3 (09:36→20:30)
[2021-03-22] MEDS: Senna/Docusate Sodium 1 Tablet PO (09:37)
[2021-03-22 14:00] VITALS: BP 114/67; PULSE 76; RESP 16; TEMP 36.7
[2021-03-22 20:50] VITALS: BP 131/73; PULSE 77; RESP 20; TEMP 36.1; O2SAT 99
[2021-03-23] MEDS: Acetaminophen 500 MG Tablet 1000 MG PO ×3 (01:46→12:37)
[2021-03-23 01:56] VITALS: BP 122/81; PULSE 80; RESP 18; TEMP 36.7
[2021-03-23] MEDS: Ibuprofen 600 MG Tablet PO ×2 (05:23→11:39)
[2021-03-23 07:55] VITALS: BP 121/76; PULSE 78; RESP 16; TEMP 36.7
--- NOTE | 2021-03-23 08:46 | PCM.PN.OB ---
Subjective Subjective Patient doing well without complaints. Tolerating PO. Ambulating and voiding without difficulty. Breast feeding well. Denies chest pain, shortness of breath, calf pain/swelling, fevers, chills, lightheadedness. Objective Data Objective Data Vital Signs: Vital Signs Temp Pulse Resp BP Pulse Ox 98.1 F 80 18 122/81 H 99 03/23/21 01:56 03/23/21 01:56 03/23/21 01:56 03/23/21 01:56 03/22/21 20:50 Oxygen Delivery Method Room Air Weight: 232 lb 3.2 oz Body Mass Index (BMI) 34.2 Intake & Output: Intake and Output for Last 24 Hours 03/21/21 03/22/21 03/23/21 23:59 23:59 23:59 Intake Total 3050 / 3050 Output Total 630 / 630 800 / 800 Balance 2420 / 2420 -800 / -800 Lab / Micro Data Result Diagrams: 03/22/21 05:45 ROS Constitutional Constitutional: Denies fever(s) Cardiovascular Cardiovascular: Denies chest pain, dyspnea or lightheadedness Gastrointestinal Gastrointestinal: Reports abdominal pain; Denies constipation or diarrhea Neurologic Neurologic: Denies dizziness or headache(s) Physical Exam Const alert, oriented x3, no apparent distress, average body habitus, healthy appearing and well nourished HEENT normocephalic Head and Scalp: atraumatic Eyes PERRL and EOMs intact bilaterally Neck full ROM Lymph Lymphatic: no lymphadenopathy noted Resp normal respiratory effort, no retractions and no use of accessory muscles Cardio regular rate GI soft to palpation, non-tender and non-distended Inspection: incision intact and other (dressing in place) Palpation: other Other Details: fundus firm Extremity normal to inspection and no clubbing, cyanosis or edema Skin no rashes or lesions noted Neuro no focal motor deficits and no sensory deficits noted Psych mental status grossly normal, affect normal and speech normal Assessment & Plan (1) delivery delivered: PLAN: s/p LTCS PPD # 2 1. routine post care 2. breast feeding- support given 3. rh positive 4. rubella immune 5. gHTN - BPs normal since delivery
[2021-03-23] MEDS: Senna/Docusate Sodium 1 Tablet PO (11:01)
[2021-03-23 12:44] VITALS: BP 128/73; PULSE 82; RESP 16; TEMP 36.6
--- NOTE | 2021-03-23 12:56 | CASEMGMT ---
Social Work Assessment Labor and Delivery Unit Patient Address: [address] [place] [address] , [place] [address] Phone number: [phone] Date of Referral: 03/21/2021 Time of Referral: 1220 Referred By: Dr. Roth Date of Intervention: 03/22/2021 Time of Intervention: 1040 Reason for Referral: Maternal history of anxiety and depression History obtained from: Medical records and mother of baby (MOB) Alla Alvarado Household composition: MOB, father of baby (FOB) and their older child. Home situation is reported as safe and adequate. Patient's parent/guardian status: MOB is a 25-year-old female, to the FOB whom the MOB has been involved with for 10 years. MOB and FOB share 2 children together now. Oldest child is a Donald Alvarado (born 12/28/2018). Johnson baby boy is to be named Yasmin Alvarado (born 03/21/2022). Medical History: DILAN is 5, para 1 now 2 after delivering Yasmin. care started at 9 weeks gestation and regular after. Delivery at 37 weeks. Baby weighed 7 pounds 2 ounces at . Apgars 9 and 10 at 1 and 5 minutes of life respectively. Educational Status: College. No issues with reading, writing, or learning comprehension. Financial Status: DILAN works at [employer]. The FOB works in [employer] at a storage and warehouse facility. Infant Supplies: MOB reports to have necessary supplies including a safe sleep space and car seat. No reported concerns with clothing, diapers, wipes. MOB is breast-feeding the baby. Childcare/Caregiver(s): DILAN will be the primary caregiver, with help from the FOB when he is home. Transportation: No reported issues. Programs/Agencies Involved: No reported agency involvement. Children Services/Legal Issues: MOB denies any legal history. Denies any history past or present with children services. Behavioral Health Issues: Mental Health History: DILAN reports a history of depression and anxiety since teen years. Reports that during high school did have a history of self injury by cutting. In college MOB attempted to address her mental health, and reports was tried on various medications and even tried counseling through the University the MOB was attending. Reports during college did have a couple suicide attempts by hanging self and wrecking car. Reports her doctor at that time had DILAN get an emotional service dog, and this helped the MOB more than anything, as this reportedly gave the MOB of purpose to live. MOB reports last suicide attempt, was prior to 2019 when Donald was born. MOB denies any history of inpatient treatment. Is not currently in counseling or on any type of medication. [place] depression screen completed with the MOB this date and the score was a 22, which is indicative of significant depression present. MOB indicated sometimes in the last week thoughts of harming self has occurred to the patient. MOB reports that when she starts having a negative thinking and feeling overwhelmed, thoughts of being better off do sometimes occur. MOB reports however her son Donald has been a big factor in the MOB wanting to live over the last few years, and also helping to ground the MOB. MOB reports that now that the baby is born, the baby is also another factor and reason for the MOB to continue living. MOB denies that she has had any planning for suicide, denies any knowledge of what method she would use, denies any intent to take her in life. MOB reports that she often snap myself out of it when having a hard time and also focusing on her children helps a lot. MOB reports has been tried on several different medications and the only medication that MOB remembers having a bad reaction to was Zoloft. MOB reports this medication, when MOB took it in college, triggered suicidal thoughts. Substance Use History: MOB denies any substance use history for self. No alcohol or marijuana use during . Does not use tobacco. Family History: DILAN denies any awareness of bipolar disorder in her own biological family. Reports that her family of origin's mentality about mental health, was that this was something you choose to have her not have; so limited support when it comes to emotional health issues. MOB reports that the FOKyrie's family has a strong history of bipolar disorder, and MOB believes the HIMA has bipolar disorder though not treated. MOB denies any domestic violence history in this relationship with the FOB, denies any form of abuse, but does admit that MOB does sometimes react differently based on the mood that the FOB is currently in. Drug Screens: Maternal drug screen negative on 09/11/2020. Family/Social Stressors: Maternal depression and anxiety present, and currently untreated. MOB reports the belief that HIMA has untreated bipolar disorder. MOB reports that she and the FOB are not doing the best, as far as their perceptions on what the roles should look like within the family and the need to change priorities based on having children. Appearing limited support for the MOB at this time. MOB reports her grandmother, who helped with childcare, in June. DILAN has had 2 miscarriages prior to conceiving Yasmin, with the last miscarriage 1 month prior to conceiving Yasmin. Support Systems: DILAN reports that her main emotional support is her cousin who is much like a best friend. Reports that her mother can help out with the kids, but does also work. HIMA has the weekend off of work to help. Depression/Shaken Baby/Safe Sleeping: Reviewed safe sleeping and shaken baby prevention. Reviewed mood and anxiety disorders, risk factors, and that both mothers and fathers can be at risk for this. ASSESSMENT: Met with the MOB in her room alone, but then later joined by the FOB. Shortly after the FOB's arrival, the topic of depression and anxiety was brought up. The MOB became tearful endorsing history of depression after Donald was born. FOB remained quiet during this time, and the MOB affect appeared to constrict. This senior writer let MOB know this senior writer regularly conducts depression screening with new moms and that does the screening on a one-to-one basis. MOB willing to complete screening and the FOB willing to leave the room to allow for one-on-one completion. MOB scored a 22 with a depression screen, which is indicative of significant depression present. MOB cried for most of the conversation regarding the topic of depression, anxiety, and . MOB reports she would be willing to try counseling again, but views having many obstacles in securing childcare as well as MOB perception that she is being selfish when seeking out this type of support. Discussed and explored with the MOB the importance of self-care, especially when in charge of caring for others. Explored small things that the MOB can do, such as taking small breaks and getting fresh air. Discussed the idea of an antidepressant medication, which the MOB reports willingness to try. This senior writer agreed to reach out to the FINANCIAL PROCESSING CLERK office to see if this would be something that could be put in place prior to MOB discharging. This senior writer discussed with the MOB, coming back to the room with an update on physician response about appropriateness of adding in an antidepressant, as well as reviewing with the FOB present a little bit more about mood and anxiety disorders and the importance of support. MOB agreeable. This senior writer provided supportive listening, reflection, and support to the MOB this date. Validated how difficult it can be to be a working mother, caring for children, and having multiple roles to play with in 1 day. Strongly encouraged MOB for self-care. While the MOB does have depression present, and has had some thoughts about being better off in the last week, the MOB has had no planning, no defining of her method, and no intent to kill or harm self; and not attempt since before Donald was born. MOB is future oriented, and does identify her children is a strong strong reason to live and to continue on. MOB is also willing to try medication, and willing to consider counseling to help improve her mood and anxiety. PLAN: Social work will follow up 1 more time with the MOB and , prior to discharge today. No other services requested or indicated. -GLORIA Diaz, ANTON *This note was generated with [employer] software. It may contain incorrect words, spelling, and punctuation that were not noted in review of the chart prior to signing*
--- NOTE | 2021-03-23 13:37 | CASEMGMT ---
Social Work Labor and Delivery Unit Called Dr. Mcdonough's office and spoke with Juanis regarding [place] depression screen score, and the mother of baby's willingness to try medication if the physician feels appropriate. Reported that MOB has history of a bad reaction to Zoloft. Received return call phone call from Juanis who reports the physician is willing to call in prescription of Celexa to the [facility]. Met with the MOB and FOB in room. Upon entering the room found the baby in the bedside crib rolled over to where the FOB was sitting. When the baby started fussing the FOB did pick the baby up and hand the baby to the MOB so the MOB could breast-feed. FOB talked to the baby in a gentle manner. FOB did handle the baby gently. MOB also handled the baby gently and appropriately. This entry writer addressed results of the [place] depression screen (with prior permission from the MOB) and that there is depression present for this MOB. Reviewed mood and anxiety disorders, the spectrum regarding length of time when this can start to when this can end. Reviewed and reinforced that mood and anxiety disorders are not mother's fault, there is no one to blame, but is something that requires support and sometimes outside intervention such as counseling or medication. Reviewed that a prescription has been called in by the physician to [facility]. This entry writer reviewed, and reinforced with the MOB, that should MOB start having any negative effects to call the physician immediately. MOB voiced understanding and agreement. Also let the MOB know that sometimes antidepressants take a couple of weeks to work. Reviewed the importance of self-care, looking at options for childcare if MOB needs to go to appointments such as counseling, moving each day, and getting fresh air. Reviewed some of the signs and symptoms, as well as that sometimes partners are aware of changes prior to the actual person being aware of what is happening. Reviewed again that fathers can also develop depression and anxiety. Offered the MOB and FOB opportunity to ask questions and give input. FOB was quiet overall, did comment a few times, but did appear to be listening as evidenced by eye contact with this entry writer. This entry writer was able to observe the MOV and FOB to talk in a relaxed manner with each other, as well as to joke and laugh. MOB expressed appreciation for the information this entry writer provided today, and expressed understanding of information reviewed. Provided the MOB and FOB with a packet on mood and anxiety disorders, reviewing signs and symptoms. Packet does include online resources, texting resources, as well as crisis lines. Provided list of resources for [facility] domestic counseling options. Offered to make a counseling appointment, but MOB reports information is sufficient for now and will follow up with this as needed. MOB wants to try medication first. Again MOB is future oriented and clearly indicates her children as a reason to continue living. MOB declines referral to the [facility] nurse visit program or helping grow. Plan: MOB and infant will discharge home. The FOB will be home through the weekend to help. MOB reports she can call her mother after that for help as needed. MOB plans to start the medication that the doctor is prescribing, and verbally agrees to call the doctor if any concerns arise about this medication. MOB excepting of information on mood and anxiety disorders, and of counseling options. Updated nursing staff. No other social services specialist requested or indicated at this time. -LETA Diaz, CIGAR MAKING MACHINE SUPERVISOR *This note was generated with [employer] software. It may contain incorrect words, spelling, and punctuation that were not noted in review of the chart prior to signing*
== END 2021-03-23 13:07 | disposition home or self-care (01) | DRG 788 ==
PROVIDERS: Admitting Provider Obstetrics & Gynecology; PCP Family Medicine; Visit Provider Obstetrics & Gynecology
PROC: 10D00Z1 Extraction of Products of Conception, Low, Open Approach (ICD-10-PCS; CPT 59514; principal; 2021-03-21 07:15)
DX: O34.219 Maternal care for unspecified type scar from previous cesarean delivery (principal); Z37.0 Single live birth; O13.4 Gestational [pregnancy-induced] hypertension without significant proteinuria, complicating childbirth; Z3A.37 37 weeks gestation of pregnancy; O99.214 Obesity complicating childbirth; E66.9 Obesity, unspecified
CPT/HCPCS: 85025; 85027; 86850; 86900; 86901; 99218; J7120; A4216; G0378; J2405